=== PATIENT | male | born 1950 | race Two or more races ===

== ENCOUNTER 2018-05-13 21:23 | Emergency (ER) | payer SELFPAY ==
[~2018-05-13] VITALS: Ht 165.1 cm; Wt 72.0 kg
[2018-05-13 22:56] VITALS: BP 167/78
== END 2018-05-13 22:42 | disposition home or self-care (01) ==
LOC: ER 21:23
DX: S09.8XXA Other specified injuries of head, initial encounter (principal); I10 Essential (primary) hypertension; W52.XXXA Crushed, pushed or stepped on by crowd or human stampede, initial encounter; Y93.89 Activity, other specified; Y92.89 Other specified places as the place of occurrence of the external cause; Y99.8 Other external cause status
CPT/HCPCS: 99284

== ENCOUNTER 2019-03-16 06:30 | Inpatient (IN) | payer MEDICARE, MEDICAID ==
[~2019-03-16] VITALS: Ht 160 cm; Wt 68.0 kg
[2019-03-16] VITALS (50 sets, daily range): BP systolic 84–200; BP diastolic 52–122
[2019-03-16] MEDS ORDERED: SODIUM CHLORIDE 0.9% 1,000 ML IV ONE ×4 (06:38→10:15)
[2019-03-16] MEDS ORDERED: ETOMIDATE 2MG/ML 10ML VIAL IV ONE (06:42)
[2019-03-16] MEDS ORDERED: SUCCINYLCHOLINE CHLORIDE 200MG/10ML IV ONE (06:42)
[2019-03-16] MEDS ORDERED: PROPOFOL 10MG/ML 100ML 100 ML IV SCH (06:45)
[2019-03-16 07:02] LABS: HEMATOCRIT. 42.5 % (42.0-52.0); HEMOGLOBIN. 13.8 g/dL (14.0-18.0); MEAN CORPUSCULAR HEMOGLOBIN 29.1 pg (28.0-32.0); MEAN CORPUSCULAR VOLUME 89.7 fL (80.0-94.0); MEAN PLATELET VOLUME 10.2 fl (7.4-10.4); PLATELET 105 x1000/uL (130-400); RED BLOOD CELL COUNT 4.74 mill/uL (4.7-6.1); RED CELL DISTRIBUTION WIDTH 14.5 % (11.6-14.6)
[2019-03-16 07:13] LABS: CHLORIDE 114 mEq/L (98-107)
[2019-03-16 07:19] LABS: ETHANOL BLOOD < 10 mg/dL
[2019-03-16] MEDS ORDERED: LORAZEPAM 2MG/ML CPJ IV ONE (07:30)
[2019-03-16 07:33] LABS: CLARITY URINE TURBID (CLEAR); KETONES URINE TRACE (NEGATIVE); LEUKOCYTE ESTERASE URINE 3+ (NEGATIVE); NITRITE URINE NEGATIVE (NEGATIVE); OCCULT BLOOD URINE 3+ (NEGATIVE); PH URINE 5.5 (4.5-8.0); PROTEIN URINE 3+ (NEGATIVE); SPECIFIC GRAVITY URINE 1.015 (1.005-1.030)
[2019-03-16 07:34] LABS: COLOR URINE BLOODY (YELLOW)
[2019-03-16 07:54] LABS: PLATELET ESTIMATE SLIGHTLY DECREASED
[2019-03-16 08:02] LABS: CREATINE KINASE > 1000 IU/L (39-308)
[2019-03-16 08:03] LABS: BG BASE EXCESS -11.3 mmol/L (-2.0-2.0); BG FRACTION INSPIRED OXYGEN 100; BG HCO3 ACT 14.1 mmol/L (22.0-26.0); BG PCO2 30.6 mmHg (35.0-45.0); BG PO2 425.5 mmHg (75.0-100.0); BG SAMPLE SITE RIGHT RADIAL; BG TIDAL VOLUME(mL) 450 mL; BG VENT MODE VENT - A/C; BG VENT RATE 15 set
[2019-03-16] MEDS ORDERED: PIPERACILLIN/TAZOBACTAM 3.375GM/50ML PREMIX IV ONE (08:15)
[2019-03-16] MEDS ORDERED: VANCOMYCIN 1 G PREMIX 200 ML IV SCH (08:15)
[2019-03-16] MEDS ORDERED: PIPERACILLIN/TAZ 3.375G PREMIX 50 ML IV SCH ×2 (08:30→12:30)
[2019-03-16 10:14] LABS: INR 1.3; PROTHROMBIN TIME 13.6 sec (9.6-11.0)
[2019-03-16] MEDS ORDERED: FENTANYL CITRATE/PF 50MCG/ML 2ML VIAL IV ONE (10:15)
[2019-03-16] MEDS ORDERED: NOREPINEPHRINE 4MG/250ML PMX 250 ML IV ONE ×2 (12:04→12:15)
[2019-03-16] MEDS ORDERED: DEXT 5%/0.45% NACL 1000ML 1,000 ML IV SCH (12:22)
[2019-03-16] MEDS ORDERED: ONDANSETRON HCL 4MG/2ML INJ IV PRN (12:30)
[2019-03-16] MEDS ORDERED: DEXT 5%/0.45% NACL 1000ML 1,000 ML IV ONE (12:45)
[2019-03-16] MEDS ORDERED: LIDOCAINE HCL 1% 20ML VIAL (Pyxis) INJ ONE (13:04)
[2019-03-16] MEDS: PROPOFOL 10MG/ML 100ML 100 ML IV PRN (13:16)
[2019-03-16] MEDS ORDERED: NOREPINEPHRINE 32 MG in DEXT 5% WATER 468 ML IV PRN (13:30)
[2019-03-16 15:27] LABS: *AMPHETAMINES SCREEN URINE NEGATIVE (NEGATIVE); *BARBITURATES SCREEN URINE NEGATIVE (NEGATIVE); *COCAINE SCREEN URINE NEGATIVE (NEGATIVE)
[2019-03-16 15:28] LABS: *BENZODIAZEPINES SCREEN URINE NEGATIVE (NEGATIVE); CANNABINOID URINE SCREEN NEGATIVE (NEGATIVE); METHADONE URINE SCREEN NEGATIVE (NEGATIVE); OPIATES URINE SCREEN NEGATIVE (NEGATIVE); PHENCYCLIDINE URINE SCREEN NEGATIVE (NEGATIVE)
[2019-03-16 16:08] LABS: HEPATITIS B SURFACE AB < 3.1 mIU/mL
[2019-03-16 16:18] LABS: HEPATITIS B SURFACE ANTIGEN NEGATIVE
[2019-03-16 19:07] LABS: BG BASE EXCESS -3.1 mmol/L (-2.0-2.0); BG CARBOXYHEMOGLOBIN 0.3 % (0.5-1.5); BG DEOXYHEMOGLOBIN 2.6 % (0.0-5.0); BG FRACTION INSPIRED OXYGEN 50; BG HCO3 ACT 19.7 mmol/L (22.0-26.0); BG METHEMOGLOBIN 0.3 % (0.0-1.5); BG OXYGEN SATURATION 97.4 % (92.0-98.5); BG OXYHEMOGLOBIN 96.8 % (94.0-97.0); BG PCO2 28.5 mmHg (35.0-45.0); BG PH 7.457 (7.350-7.450); BG PO2 121.4 mmHg (75.0-100.0); BG SAMPLE SITE RIGHT RADIAL; BG TIDAL VOLUME(mL) 500 mL; BG TOTAL HEMOGLOBIN 12.2 g/dL (12.0-18.0); BG VENT MODE VENT - A/C; BG VENT RATE 16 set
[2019-03-16] MEDS ORDERED: HEPARIN 25,000 UNITS PREMIX 500 ML IV PRN (20:00)
[2019-03-16] MEDS ORDERED: HEPARIN 5000 UNITS/ML VIAL IV SCH (20:00)
[2019-03-16] MEDS ORDERED: HEPARIN 5000 UNITS/ML VIAL IV PRN ×3 (20:00→20:30)
[2019-03-16 20:16] LABS: INR 1.2; PARTIAL THROMBOPLASTIN TIME 36.4 sec (23.4-31.0); PROTHROMBIN TIME 12.7 sec (9.6-11.0)
[2019-03-16] MEDS ORDERED: HEPARIN 5000 UNITS/ML VIAL IV NR (21:00)
[2019-03-16] MEDS ORDERED: HEPARIN 5000 UNITS/ML VIAL SUBCUT SCH (21:00)
[2019-03-16] MEDS: PIPERACILLIN/TAZOBACTAM 3.375 G in DEXT 5% WATER 100 ML IV SCH (21:05)
[2019-03-16] MEDS: HEPARIN 25,000 UNITS PREMIX 500 ML IV PRN (21:40)
[2019-03-16 23:19] LABS: CREATINE KINASE MB FRACTION 10.7 ng/mL (0.5-3.6)
[2019-03-17] VITALS (77 sets, daily range): BP systolic 86–148; BP diastolic 47–90
[2019-03-17 05:23] LABS: HEMATOCRIT. 35.9 % (42.0-52.0); HEMOGLOBIN. 12.4 g/dL (14.0-18.0); MEAN CORPUSCULAR HEMOGLOBIN 29.9 pg (28.0-32.0); MEAN CORPUSCULAR VOLUME 86.5 fL (80.0-94.0); MEAN PLATELET VOLUME 10.3 fl (7.4-10.4); PLATELET 69 x1000/uL (130-400); RED BLOOD CELL COUNT 4.15 mill/uL (4.7-6.1); RED CELL DISTRIBUTION WIDTH 14.7 % (11.6-14.6)
[2019-03-17 05:40] LABS: CHLORIDE 117 mEq/L (98-107)
[2019-03-17] MEDS: PROPOFOL 10MG/ML 100ML 100 ML IV PRN ×2 (05:52→17:52)
[2019-03-17 05:53] LABS: PHOSPHORUS 2.6 mg/dL (2.5-4.9)
[2019-03-17] MEDS: HEPARIN 5000 UNITS/ML VIAL IV PRN ×2 (06:04→18:56)
[2019-03-17 07:41] LABS: BG BASE EXCESS 0.6 mmol/L (-2.0-2.0); BG CARBOXYHEMOGLOBIN 0.3 % (0.5-1.5); BG DEOXYHEMOGLOBIN 2.8 % (0.0-5.0); BG FRACTION INSPIRED OXYGEN 50; BG HCO3 ACT 23.9 mmol/L (22.0-26.0); BG METHEMOGLOBIN 0.2 % (0.0-1.5); BG OXYGEN SATURATION 97.2 % (92.0-98.5); BG OXYHEMOGLOBIN 96.7 % (94.0-97.0); BG PH 7.465 (7.350-7.450); BG PO2 119.6 mmHg (75.0-100.0); BG SAMPLE SITE RIGHT BRACHIAL; BG TIDAL VOLUME(mL) 500 mL; BG TOTAL HEMOGLOBIN 12.6 g/dL (12.0-18.0); BG VENT MODE VENT - A/C; BG VENT RATE 16 set
[2019-03-17 09:17] LABS: PLATELET ESTIMATE DECREASED
[2019-03-17] MEDS: PIPERACILLIN/TAZOBACTAM 3.375 G in DEXT 5% WATER 100 ML IV SCH (09:23)
[2019-03-17] MEDS: DEXT 5%/0.2% NACL 1,000 ML IV SCH ×3 (09:23→20:40)
[2019-03-17] MEDS ORDERED: POTASSIUM CHLORIDE INJ 40 MEQ in DEXT 5% WATER 250 ML IV NR (09:30)
[2019-03-17] MEDS ORDERED: ACETAMINOPHEN 325MG TABLET PO PRN (10:45)
[2019-03-17] MEDS: ACETAMINOPHEN 325MG TABLET PO PRN (10:59)
[2019-03-17] MEDS ORDERED: VANCOMYCIN 1250MG in DEXTROSE 5% WATER 250ML IV NR (13:00)
[2019-03-17] MEDS: HEPARIN 25,000 UNITS PREMIX 500 ML IV PRN (18:12)
[2019-03-17] MEDS: MEROPENEM 1,000 MG in SODIUM CHLORIDE 0.9% 100 ML IV SCH (20:37)
[2019-03-17] MEDS ORDERED: SODIUM CHLORIDE 0.9% IV SCH (21:00)
[2019-03-17] MEDS ORDERED: AMIKACIN SULFATE IV SCH (21:00)
[2019-03-18] VITALS (48 sets, daily range): BP systolic 89–131; BP diastolic 54–81
[2019-03-18] MEDS: IPRATROPIUM/ALBUTEROL 0.5-3(2.5)MG/3ML NEB NEB PRN ×3 (00:16→20:15)
[2019-03-18] MEDS: HEPARIN 5000 UNITS/ML VIAL IV PRN (01:31)
[2019-03-18] MEDS: ACETAMINOPHEN 325MG TABLET PO PRN ×2 (04:11→19:50)
[2019-03-18 05:27] LABS: CHLORIDE 118 mEq/L (98-107)
[2019-03-18 05:32] LABS: HEMATOCRIT. 34.4 % (42.0-52.0); HEMOGLOBIN. 11.6 g/dL (14.0-18.0); MEAN CORPUSCULAR HEMOGLOBIN 29.2 pg (28.0-32.0); MEAN CORPUSCULAR VOLUME 86.5 fL (80.0-94.0); MEAN PLATELET VOLUME 10.3 fl (7.4-10.4); PLATELET 58 x1000/uL (130-400); RED BLOOD CELL COUNT 3.98 mill/uL (4.7-6.1); RED CELL DISTRIBUTION WIDTH 14.6 % (11.6-14.6)
[2019-03-18 05:37] LABS: PHOSPHORUS 1.8 mg/dL (2.5-4.9)
[2019-03-18 05:39] LABS: CREATINE KINASE 265 IU/L (39-308)
[2019-03-18] MEDS: DEXT 5%/0.2% NACL 1,000 ML IV SCH (05:53)
[2019-03-18] MEDS: PROPOFOL 10MG/ML 100ML 100 ML IV PRN (05:55)
[2019-03-18 07:02] LABS: PLATELET ESTIMATE DECREASED
[2019-03-18] MEDS ORDERED: KCL 20MEQ/100ML PREMIX 100 ML IV ONE ×2 (08:00→10:00)
[2019-03-18] MEDS: MEROPENEM 1,000 MG in SODIUM CHLORIDE 0.9% 100 ML IV SCH (08:47)
[2019-03-18] MEDS: DEXTROSE 5% WATER 1,000 ML IV SCH ×2 (09:03→19:27)
[2019-03-18] MEDS: POTASSIUM CHLORIDE 20MEQ/PACKET NG SCH (09:39)
[2019-03-18] MEDS ORDERED: POTASSIUM PHOS,M-BASIC-D-BASIC 15 MMOL in DEXT 5% WATER 245 ML IV SCH (10:00)
[2019-03-18] MEDS: VANCOMYCIN 750 MG PREMIX 150 ML IV SCH ×2 (11:13→17:57)
[2019-03-18] MEDS: HEPARIN 25,000 UNITS PREMIX 500 ML IV PRN (11:16)
[2019-03-18] MEDS ORDERED: IOHEXOL-350 100 ML BOTTLE ONE (15:42)
[2019-03-18] MEDS: CEFAZOLIN 1000MG PREMIX 50 ML IV SCH (19:50)
[2019-03-19] VITALS (36 sets, daily range): BP systolic 110–153; BP diastolic 58–86
[2019-03-19] MEDS: IPRATROPIUM/ALBUTEROL 0.5-3(2.5)MG/3ML NEB NEB PRN ×4 (00:07→17:29)
[2019-03-19] MEDS: VANCOMYCIN 750 MG PREMIX 150 ML IV SCH ×2 (00:40→08:06)
[2019-03-19] MEDS: CEFAZOLIN 1000MG PREMIX 50 ML IV SCH ×3 (02:38→17:53)
[2019-03-19] MEDS: HEPARIN 25,000 UNITS PREMIX 500 ML IV PRN ×2 (02:41→17:57)
[2019-03-19 05:33] LABS: HEMATOCRIT. 36.6 % (42.0-52.0); HEMOGLOBIN. 12.1 g/dL (14.0-18.0); MEAN CORPUSCULAR HEMOGLOBIN 28.8 pg (28.0-32.0); MEAN CORPUSCULAR VOLUME 86.9 fL (80.0-94.0); MEAN PLATELET VOLUME 10.8 fl (7.4-10.4); PLATELET 56 x1000/uL (130-400); RED BLOOD CELL COUNT 4.21 mill/uL (4.7-6.1); RED CELL DISTRIBUTION WIDTH 14.5 % (11.6-14.6)
[2019-03-19 05:38] LABS: CHLORIDE 114 mEq/L (98-107)
[2019-03-19 05:46] LABS: PHOSPHORUS 2.3 mg/dL (2.5-4.9)
[2019-03-19 05:47] LABS: LDL CHOLESTEROL 41 mg/dL (5-100)
[2019-03-19 05:49] LABS: HDL CHOLESTEROL 13 mg/dL (40-59)
[2019-03-19] MEDS: POTASSIUM CHLORIDE 20MEQ/PACKET NG SCH ×2 (08:06→21:07)
[2019-03-19] MEDS: DEXTROSE 5% WATER 1,000 ML IV SCH ×4 (08:15→17:39)
[2019-03-19 10:20] LABS: BG BASE EXCESS -0.7 mmol/L (-2.0-2.0); BG CARBOXYHEMOGLOBIN 0.2 % (0.5-1.5); BG DEOXYHEMOGLOBIN 2.3 % (0.0-5.0); BG FRACTION INSPIRED OXYGEN 35; BG METHEMOGLOBIN 0.3 % (0.0-1.5); BG OXYGEN SATURATION 97.7 % (92.0-98.5); BG OXYHEMOGLOBIN 97.2 % (94.0-97.0); BG PCO2 30.3 mmHg (35.0-45.0); BG PH 7.479 (7.350-7.450); BG PO2 136.9 mmHg (75.0-100.0); BG PRESSURE SUPPORT 8; BG SAMPLE SITE RIGHT RADIAL; BG TOTAL HEMOGLOBIN 12.1 g/dL (12.0-18.0); BG VENT MODE VENT - CPAP
[2019-03-19] MEDS ORDERED: RACEPINEPHRINE 2.25% 0.5ML NEB VIAL HHN PRN (10:45)
[2019-03-19] MEDS ORDERED: POTASSIUM PHOS,M-BASIC-D-BASIC 20 MMOL in DEXT 5% WATER 243.3333 ML IV NR (12:00)
[2019-03-19 14:13] LABS: PLATELET ESTIMATE DECREASED
[2019-03-20] VITALS (43 sets, daily range): BP systolic 114–151; BP diastolic 39–95
[2019-03-20] MEDS: CEFAZOLIN 1000MG PREMIX 50 ML IV SCH ×3 (03:53→18:16)
[2019-03-20 05:13] LABS: HEMATOCRIT. 35.9 % (42.0-52.0); MEAN CORPUSCULAR HEMOGLOBIN 28.6 pg (28.0-32.0); MEAN CORPUSCULAR VOLUME 85.6 fL (80.0-94.0); PLATELET 99 x1000/uL (130-400); RED BLOOD CELL COUNT 4.19 mill/uL (4.7-6.1); RED CELL DISTRIBUTION WIDTH 14.3 % (11.6-14.6)
[2019-03-20 05:18] LABS: CHLORIDE 113 mEq/L (98-107)
[2019-03-20 05:23] LABS: PHOSPHORUS 3.1 mg/dL (2.5-4.9)
[2019-03-20] MEDS: DEXTROSE 5% WATER 1,000 ML IV SCH ×2 (05:25→18:16)
[2019-03-20 07:43] LABS: PLATELET ESTIMATE DECREASED
[2019-03-20] MEDS: POTASSIUM CHLORIDE 20MEQ/PACKET NG SCH ×2 (08:36→21:03)
[2019-03-20] MEDS: IPRATROPIUM/ALBUTEROL 0.5-3(2.5)MG/3ML NEB NEB PRN (09:17)
[2019-03-20 20:44] LABS: HEMATOCRIT. 31.5 % (42.0-52.0); HEMOGLOBIN. 10.6 g/dL (14.0-18.0); MEAN CORPUSCULAR HEMOGLOBIN 28.7 pg (28.0-32.0); MEAN CORPUSCULAR VOLUME 85.6 fL (80.0-94.0); PLATELET 142 x1000/uL (130-400); RED BLOOD CELL COUNT 3.68 mill/uL (4.7-6.1); RED CELL DISTRIBUTION WIDTH 14.5 % (11.6-14.6)
[2019-03-21] VITALS (31 sets, daily range): BP systolic 120–149; BP diastolic 54–85
[2019-03-21] MEDS: CEFAZOLIN 1000MG PREMIX 50 ML IV SCH ×3 (03:16→18:01)
[2019-03-21 03:39] LABS: PLATELET ESTIMATE NORMAL
[2019-03-21] MEDS: DEXTROSE 5% WATER 1,000 ML IV SCH (08:11)
[2019-03-21 09:12] LABS: HEMATOCRIT. 29.5 % (42.0-52.0); HEMOGLOBIN. 9.9 g/dL (14.0-18.0); MEAN CORPUSCULAR HEMOGLOBIN 28.6 pg (28.0-32.0); MEAN CORPUSCULAR VOLUME 85.7 fL (80.0-94.0); MEAN PLATELET VOLUME 10.9 fl (7.4-10.4); PLATELET 174 x1000/uL (130-400); RED BLOOD CELL COUNT 3.45 mill/uL (4.7-6.1); RED CELL DISTRIBUTION WIDTH 14.3 % (11.6-14.6)
[2019-03-21 09:16] LABS: CHLORIDE 114 mEq/L (98-107)
[2019-03-21 09:22] LABS: PHOSPHORUS 2.9 mg/dL (2.5-4.9)
[2019-03-21] MEDS: POTASSIUM CHLORIDE 20MEQ/PACKET NG SCH ×2 (09:23→21:11)
[2019-03-21 09:57] LABS: PLATELET ESTIMATE NORMAL
[2019-03-21] MEDS: APIXABAN 5 MG TABLET PO SCH ×2 (12:16→17:15)
[2019-03-22] VITALS (32 sets, daily range): BP systolic 107–137; BP diastolic 46–75
[2019-03-22] MEDS: DEXTROSE 5% WATER 1,000 ML IV SCH ×2 (00:38→10:28)
[2019-03-22] MEDS: CEFAZOLIN 1000MG PREMIX 50 ML IV SCH ×3 (04:56→18:03)
[2019-03-22 05:31] LABS: BASOPHILS % 0.5 % (0.0-2.0); EOSINOPHILS % 2.6 % (0.0-5.0); HEMATOCRIT. 31.5 % (42.0-52.0); HEMOGLOBIN. 10.5 g/dL (14.0-18.0); LYMPHOCYTES % 7.1 % (20.0-50.0); MEAN CORPUSCULAR HEMOGLOBIN 29.5 pg (28.0-32.0); MEAN CORPUSCULAR VOLUME 88.5 fL (80.0-94.0); MEAN PLATELET VOLUME 10.9 fl (7.4-10.4); MONOCYTES % 4.3 % (2.0-8.0); NEUTROPHILS % 85.5 % (40.0-76.0); PLATELET 190 x1000/uL (130-400); RED BLOOD CELL COUNT 3.55 mill/uL (4.7-6.1); RED CELL DISTRIBUTION WIDTH 14.5 % (11.6-14.6)
[2019-03-22 05:45] LABS: CHLORIDE 114 mEq/L (98-107)
[2019-03-22 06:01] LABS: PHOSPHORUS 3.6 mg/dL (2.5-4.9)
[2019-03-22] MEDS: POTASSIUM CHLORIDE 20MEQ/PACKET NG SCH ×2 (08:01→08:06)
[2019-03-22] MEDS: APIXABAN 5 MG TABLET PO SCH ×2 (08:01→16:19)
[2019-03-22] MEDS: METRONIDAZOLE 500 MG PREMIX 100 ML IV SCH ×2 (15:22→22:02)
[2019-03-23] VITALS (42 sets, daily range): BP systolic 99–139; BP diastolic 50–98
[2019-03-23] MEDS: CEFAZOLIN 1000MG PREMIX 50 ML IV SCH ×3 (03:04→18:15)
[2019-03-23 05:23] LABS: HEMATOCRIT. 29.3 % (42.0-52.0); HEMOGLOBIN. 9.9 g/dL (14.0-18.0); MEAN CORPUSCULAR VOLUME 85.6 fL (80.0-94.0); MEAN PLATELET VOLUME 9.6 fl (7.4-10.4); PLATELET 414 x1000/uL (130-400); RED BLOOD CELL COUNT 3.43 mill/uL (4.7-6.1); RED CELL DISTRIBUTION WIDTH 14.3 % (11.6-14.6)
[2019-03-23 05:28] LABS: CHLORIDE 110 mEq/L (98-107)
[2019-03-23 05:32] LABS: PHOSPHORUS 3.6 mg/dL (2.5-4.9)
[2019-03-23] MEDS: METRONIDAZOLE 500 MG PREMIX 100 ML IV SCH ×3 (06:02→22:00)
[2019-03-23 08:02] LABS: PLATELET ESTIMATE SLIGHTLY INCREASED
[2019-03-23] MEDS: APIXABAN 5 MG TABLET PO SCH ×2 (08:09→17:19)
[2019-03-24] VITALS (14 sets, daily range): BP systolic 112–135; BP diastolic 51–73
[2019-03-24] MEDS: CEFAZOLIN 1000MG PREMIX 50 ML IV SCH ×2 (02:18→11:00)
[2019-03-24] MEDS: METRONIDAZOLE 500 MG PREMIX 100 ML IV SCH ×3 (05:02→23:10)
[2019-03-24 05:23] LABS: HEMATOCRIT. 32.3 % (42.0-52.0); HEMOGLOBIN. 10.5 g/dL (14.0-18.0); MEAN CORPUSCULAR HEMOGLOBIN 28.4 pg (28.0-32.0); MEAN CORPUSCULAR VOLUME 87.3 fL (80.0-94.0); MEAN PLATELET VOLUME 9.5 fl (7.4-10.4); PLATELET 531 x1000/uL (130-400); RED BLOOD CELL COUNT 3.71 mill/uL (4.7-6.1); RED CELL DISTRIBUTION WIDTH 14.5 % (11.6-14.6)
[2019-03-24 05:31] LABS: CHLORIDE 112 mEq/L (98-107)
[2019-03-24 05:42] LABS: PHOSPHORUS 2.9 mg/dL (2.5-4.9)
[2019-03-24 07:47] LABS: PLATELET ESTIMATE INCREASED
[2019-03-24] MEDS: APIXABAN 5 MG TABLET PO SCH ×2 (12:34→17:59)
[2019-03-24] MEDS: TAMSULOSIN HCL 0.4MG SR CAPSULE PO SCH (12:42)
[2019-03-24] MEDS ORDERED: REGADENOSON 0.4 MG/5 ML IV NR (13:30)
[2019-03-25] MEDS: CEFAZOLIN 1000MG PREMIX 50 ML IV SCH ×3 (03:00→18:28)
[2019-03-25] MEDS: METRONIDAZOLE 500 MG PREMIX 100 ML IV SCH ×2 (07:09→16:44)
[2019-03-25 08:00] VITALS: BP 135/79
[2019-03-25] MEDS: APIXABAN 5 MG TABLET PO SCH ×2 (10:14→16:44)
[2019-03-25] MEDS: TAMSULOSIN HCL 0.4MG SR CAPSULE PO SCH (10:15)
[2019-03-25 10:36] LABS: HEMOGLOBIN. 11.3 g/dL (14.0-18.0); MEAN CORPUSCULAR HEMOGLOBIN 28.9 pg (28.0-32.0); MEAN CORPUSCULAR VOLUME 87.1 fL (80.0-94.0); MEAN PLATELET VOLUME 9.1 fl (7.4-10.4); PLATELET 585 x1000/uL (130-400); RED CELL DISTRIBUTION WIDTH 14.5 % (11.6-14.6)
[2019-03-25 10:50] LABS: CHLORIDE 116 mEq/L (98-107)
[2019-03-25 10:57] LABS: PHOSPHORUS 2.9 mg/dL (2.5-4.9)
[2019-03-25 11:29] LABS: PLATELET ESTIMATE INCREASED
[2019-03-25] MEDS ORDERED: REGADENOSON 0.4 MG/5 ML IV ONE (11:39)
[2019-03-25 14:15] LABS: T4 FREE 1.23 ng/dL (0.76-1.46)
[2019-03-25 14:36] LABS: VITAMIN B12 SERUM 1430 pg/mL (211-911)
[2019-03-25 14:42] LABS: FOLIC ACID (FOLATE) SERUM > 20.00 ng/mL (>5.38)
[2019-03-25 16:00] VITALS: BP 130/89
[2019-03-25 20:00] VITALS: BP 146/80
[2019-03-26] VITALS (7 sets, daily range): BP systolic 119–152; BP diastolic 69–82
[2019-03-26] MEDS: METRONIDAZOLE 500 MG PREMIX 100 ML IV SCH ×2 (00:03→06:18)
[2019-03-26 07:26] LABS: HEMATOCRIT. 32.6 % (42.0-52.0); HEMOGLOBIN. 10.8 g/dL (14.0-18.0); MEAN CORPUSCULAR HEMOGLOBIN 29.1 pg (28.0-32.0); MEAN CORPUSCULAR VOLUME 87.4 fL (80.0-94.0); MEAN PLATELET VOLUME 8.8 fl (7.4-10.4); PLATELET 575 x1000/uL (130-400); RED BLOOD CELL COUNT 3.73 mill/uL (4.7-6.1); RED CELL DISTRIBUTION WIDTH 14.9 % (11.6-14.6)
[2019-03-26 08:18] LABS: PHOSPHORUS 4.1 mg/dL (2.5-4.9)
[2019-03-26] MEDS ORDERED: DEXT 5%/0.45% NACL 1000ML 1,000 ML IV SCH (09:00)
[2019-03-26] MEDS: TAMSULOSIN HCL 0.4MG SR CAPSULE PO SCH (12:25)
[2019-03-26] MEDS: APIXABAN 5 MG TABLET PO SCH (12:25)
[2019-03-26 13:38] LABS: PLATELET ESTIMATE INCREASED
[2019-03-26] MEDS ORDERED: LACTULOSE 20G/30ML UDC PO SCH (22:00)
== END 2019-03-26 22:20 | DRG 871 ==
LOC: ER 06:30 → CVICU 11:31 → EDBEDREQTM 11:36 → EDBEDREQ 11:36 → ENRESERV 11:46 → CANRESERV 11:46 → ENRESERV 11:49 → 8WST 03-24 06:18
PROVIDERS: ADMIT Internal Medicine; ATTEND Internal Medicine
PROC: 5A1945Z Respiratory Ventilation, 24-96 Consecutive Hours (ICD-10-PCS; principal; 2019-03-16)
PROC: 0BH17EZ Insertion of Endotracheal Airway into Trachea, Via Natural or Artificial Opening (ICD-10-PCS; 2019-03-16)
PROC: 02H633Z Insertion of Infusion Device into Right Atrium, Percutaneous Approach (ICD-10-PCS; 2019-03-16)
PROC: B548ZZA Ultrasonography of Superior Vena Cava, Guidance (ICD-10-PCS; 2019-03-16)
PROC: 5A1D70Z Performance of Urinary Filtration, Intermittent, Less than 6 Hours Per Day (ICD-10-PCS; 2019-03-16)
DX: A41.51 Sepsis due to Escherichia coli [E. coli] (principal); R65.21 Severe sepsis with septic shock; E43 Unspecified severe protein-calorie malnutrition; J96.00 Acute respiratory failure, unspecified whether with hypoxia or hypercapnia; D65 Disseminated intravascular coagulation [defibrination syndrome]; G82.50 Quadriplegia, unspecified; G92 Toxic encephalopathy; I21.4 Non-ST elevation (NSTEMI) myocardial infarction; I26.99 Other pulmonary embolism without acute cor pulmonale; J18.9 Pneumonia, unspecified organism; N17.9 Acute kidney failure, unspecified; M62.82 Rhabdomyolysis; N39.0 Urinary tract infection, site not specified; E87.2 Acidosis; E87.0 Hyperosmolality and hypernatremia; G62.81 Critical illness polyneuropathy; J98.11 Atelectasis; R47.01 Aphasia; D64.9 Anemia, unspecified; B96.20 Unspecified Escherichia coli [E. coli] as the cause of diseases classified elsewhere; E86.9 Volume depletion, unspecified; K57.90 Diverticulosis of intestine, part unspecified, without perforation or abscess without bleeding; R13.10 Dysphagia, unspecified; R31.0 Gross hematuria; I10 Essential (primary) hypertension; Z68.26 Body mass index [BMI] 26.0-26.9, adult; I25.2 Old myocardial infarction; Z82.49 Family history of ischemic heart disease and other diseases of the circulatory system
CPT/HCPCS: 36415; 36600; 70551; 71045; 71250; 71275; 74018; 74176; 76700; 77001; 78452; 78580; 80048; 80061; 80076; 80202; 80305; 80307; 80320; 80329; 81003; 82140; 82375; 82550; 82553; 82607; 82746; 82805; 82962; 83036; 83605; 83735; 83880; 84100; 84145; 84439; 84443; 84478; 84481; 84484; 85379; 86705; 86706; 86803; 87070; 87077; 87186; 87340; 92523; 92610; 93005; 93017; 93306; 93880; 93970; 94002; 94003; 94640; 97110; 97162; 97166; 99291; A6261; A9500; C1752; J0278; J0330; J0690; J1644; J2060; J2185; J2543; J2704; J2785; J3010; J3370; J3480; J3490; J7030; J7040; J7050; J7060; J7070; J7620; Q9967; A4315; G0480

== ENCOUNTER 2019-03-26 22:30 | Inpatient (IN) | payer MEDICARE, MEDICAID ==
[~2019-03-26] VITALS: Ht 160 cm; Wt 68.0 kg
[2019-03-26 22:35] VITALS: BP 122/63
[2019-03-26 23:00] VITALS: BP 122/63
[2019-03-26] MEDS ORDERED: ONDANSETRON HCL 4MG TABLET PO PRN (23:45)
[2019-03-26] MEDS ORDERED: RACEPINEPHRINE 2.25% 0.5ML NEB VIAL HHN PRN (23:45)
[2019-03-26] MEDS ORDERED: ACETAMINOPHEN 325MG TABLET PO PRN (23:45)
[2019-03-26] MEDS ORDERED: IPRATROPIUM/ALBUTEROL 0.5-3(2.5)MG/3ML NEB HHN PRN (23:45)
[2019-03-27] MEDS: LACTULOSE 20G/30ML UDC PO SCH ×3 (06:00→21:16)
[2019-03-27 08:00] VITALS: BP 129/75
[2019-03-27] MEDS: APIXABAN 5 MG TABLET PO SCH ×2 (08:20→17:59)
[2019-03-27] MEDS ORDERED: TAMSULOSIN HCL 0.4MG SR CAPSULE PO SCH (09:00)
[2019-03-27 10:54] LABS: BASOPHILS % 0.8 % (0.0-2.0); EOSINOPHILS % 1.7 % (0.0-5.0); HEMATOCRIT. 32.7 % (42.0-52.0); HEMOGLOBIN. 10.8 g/dL (14.0-18.0); LYMPHOCYTES % 10.1 % (20.0-50.0); MEAN CORPUSCULAR HEMOGLOBIN 28.9 pg (28.0-32.0); MEAN CORPUSCULAR VOLUME 87.5 fL (80.0-94.0); MEAN PLATELET VOLUME 8.8 fl (7.4-10.4); MONOCYTES % 7.1 % (2.0-8.0); NEUTROPHILS % 80.3 % (40.0-76.0); PLATELET 550 x1000/uL (130-400); RED BLOOD CELL COUNT 3.73 mill/uL (4.7-6.1)
[2019-03-27 11:24] LABS: CHLORIDE 115 mEq/L (98-107)
[2019-03-27 11:30] LABS: PHOSPHORUS 2.7 mg/dL (2.5-4.9)
[2019-03-27] MEDS ORDERED: POTASSIUM CHLORIDE 20MEQ TABLET SR PO SCH (13:15)
[2019-03-27] MEDS: TAMSULOSIN HCL 0.4MG SR CAPSULE PO SCH (17:58)
[2019-03-27] MEDS: FINASTERIDE 5MG TABLET PO SCH (17:59)
[2019-03-27 20:00] VITALS: BP 121/67
[2019-03-28] MEDS: LACTULOSE 20G/30ML UDC PO SCH ×3 (06:00→21:14)
[2019-03-28 07:09] LABS: BASOPHILS % 1.3 % (0.0-2.0); EOSINOPHILS % 2.3 % (0.0-5.0); HEMATOCRIT. 28.6 % (42.0-52.0); HEMOGLOBIN. 9.6 g/dL (14.0-18.0); LYMPHOCYTES % 13.7 % (20.0-50.0); MEAN CORPUSCULAR HEMOGLOBIN 29.3 pg (28.0-32.0); MEAN CORPUSCULAR VOLUME 87.1 fL (80.0-94.0); MEAN PLATELET VOLUME 8.4 fl (7.4-10.4); MONOCYTES % 6.9 % (2.0-8.0); NEUTROPHILS % 75.8 % (40.0-76.0); PLATELET 484 x1000/uL (130-400); RED BLOOD CELL COUNT 3.28 mill/uL (4.7-6.1); RED CELL DISTRIBUTION WIDTH 14.6 % (11.6-14.6)
[2019-03-28 07:31] LABS: CHLORIDE 117 mEq/L (98-107)
[2019-03-28 07:44] LABS: PHOSPHORUS 2.8 mg/dL (2.5-4.9)
[2019-03-28 08:00] VITALS: BP 130/71
[2019-03-28] MEDS: TAMSULOSIN HCL 0.4MG SR CAPSULE PO SCH ×2 (08:15→16:02)
[2019-03-28] MEDS: FINASTERIDE 5MG TABLET PO SCH (08:16)
[2019-03-28] MEDS: APIXABAN 5 MG TABLET PO SCH ×2 (08:16→16:02)
[2019-03-28] MEDS ORDERED: POTASSIUM CHLORIDE 20MEQ TABLET SR PO NR (11:30)
[2019-03-28] MEDS ORDERED: MAGNESIUM 2 G PREMIX 50 ML IV NR (12:30)
[2019-03-28 20:00] VITALS: BP 134/66
[2019-03-29] MEDS: LACTULOSE 20G/30ML UDC PO SCH ×3 (06:00→20:35)
[2019-03-29] MEDS: LEVOTHYROXINE SODIUM 25MCG TABLET PO SCH (06:30)
[2019-03-29 08:00] VITALS: BP 137/64
[2019-03-29] MEDS: APIXABAN 5 MG TABLET PO SCH ×2 (08:18→17:15)
[2019-03-29] MEDS: FINASTERIDE 5MG TABLET PO SCH (08:18)
[2019-03-29 08:19] LABS: BASOPHILS % 1.5 % (0.0-2.0); EOSINOPHILS % 3.2 % (0.0-5.0); HEMATOCRIT. 28.8 % (42.0-52.0); HEMOGLOBIN. 9.5 g/dL (14.0-18.0); LYMPHOCYTES % 13.3 % (20.0-50.0); MEAN CORPUSCULAR VOLUME 87.6 fL (80.0-94.0); MEAN PLATELET VOLUME 8.8 fl (7.4-10.4); MONOCYTES % 6.3 % (2.0-8.0); NEUTROPHILS % 75.7 % (40.0-76.0); PLATELET 452 x1000/uL (130-400); RED BLOOD CELL COUNT 3.29 mill/uL (4.7-6.1); RED CELL DISTRIBUTION WIDTH 14.8 % (11.6-14.6)
[2019-03-29] MEDS: TAMSULOSIN HCL 0.4MG SR CAPSULE PO SCH ×2 (08:22→17:15)
[2019-03-29 08:33] LABS: CHLORIDE 116 mEq/L (98-107)
[2019-03-29 08:44] LABS: PHOSPHORUS 2.8 mg/dL (2.5-4.9)
[2019-03-29 08:47] LABS: T4 FREE 1.13 ng/dL (0.76-1.46)
[2019-03-29 20:00] VITALS: BP 141/72
[2019-03-30] MEDS: LACTULOSE 20G/30ML UDC PO SCH ×3 (05:10→21:15)
[2019-03-30] MEDS: LEVOTHYROXINE SODIUM 25MCG TABLET PO SCH (06:19)
[2019-03-30 08:20] VITALS: BP 121/73
[2019-03-30] MEDS: APIXABAN 5 MG TABLET PO SCH ×2 (08:35→16:11)
[2019-03-30] MEDS: TAMSULOSIN HCL 0.4MG SR CAPSULE PO SCH ×2 (08:35→16:07)
[2019-03-30] MEDS: FINASTERIDE 5MG TABLET PO SCH (08:35)
[2019-03-30 20:00] VITALS: BP 140/76
[2019-03-31] MEDS: SILVER SULFADIAZINE 1% CREAM 50GM TOP SCH (02:10)
[2019-03-31] MEDS: LACTULOSE 20G/30ML UDC PO SCH ×3 (06:00→21:32)
[2019-03-31] MEDS: LEVOTHYROXINE SODIUM 25MCG TABLET PO SCH (06:26)
[2019-03-31] MEDS: FINASTERIDE 5MG TABLET PO SCH (08:23)
[2019-03-31] MEDS: TAMSULOSIN HCL 0.4MG SR CAPSULE PO SCH ×2 (08:24→16:10)
[2019-03-31 08:33] VITALS: BP 156/81
[2019-03-31] MEDS: APIXABAN 5 MG TABLET PO SCH ×2 (09:31→16:10)
[2019-03-31 18:30] LABS: CLARITY URINE CLOUDY (CLEAR); COLOR URINE YELLOW (YELLOW); KETONES URINE NEGATIVE (NEGATIVE); LEUKOCYTE ESTERASE URINE 3+ (NEGATIVE); NITRITE URINE NEGATIVE (NEGATIVE); OCCULT BLOOD URINE 1+ (NEGATIVE); PH URINE 8.5 (4.5-8.0); PROTEIN URINE NEGATIVE (NEGATIVE); SPECIFIC GRAVITY URINE 1.004 (1.005-1.030); UROBILINOGEN URINE 0.2 E.U./dL (0.2-1.0)
[2019-03-31 20:00] VITALS: BP 147/85
[2019-04-01] MEDS: LACTULOSE 20G/30ML UDC PO SCH ×3 (06:15→22:18)
[2019-04-01] MEDS: LEVOTHYROXINE SODIUM 25MCG TABLET PO SCH (06:15)
[2019-04-01 07:24] LABS: CHLORIDE 114 mEq/L (98-107)
[2019-04-01 07:30] LABS: BASOPHILS % 1.3 % (0.0-2.0); EOSINOPHILS % 2.9 % (0.0-5.0); HEMATOCRIT. 31.3 % (42.0-52.0); HEMOGLOBIN. 10.7 g/dL (14.0-18.0); LYMPHOCYTES % 11.5 % (20.0-50.0); MEAN CORPUSCULAR HEMOGLOBIN 29.7 pg (28.0-32.0); MEAN CORPUSCULAR VOLUME 87.3 fL (80.0-94.0); MEAN PLATELET VOLUME 8.6 fl (7.4-10.4); MONOCYTES % 6.2 % (2.0-8.0); NEUTROPHILS % 78.1 % (40.0-76.0); PLATELET 343 x1000/uL (130-400); RED BLOOD CELL COUNT 3.59 mill/uL (4.7-6.1); RED CELL DISTRIBUTION WIDTH 15.5 % (11.6-14.6)
[2019-04-01 07:41] LABS: PHOSPHORUS 3.2 mg/dL (2.5-4.9)
[2019-04-01 07:52] VITALS: BP 163/84
[2019-04-01] MEDS: TAMSULOSIN HCL 0.4MG SR CAPSULE PO SCH ×2 (09:00→16:52)
[2019-04-01] MEDS: APIXABAN 5 MG TABLET PO SCH ×2 (09:01→16:51)
[2019-04-01] MEDS: FINASTERIDE 5MG TABLET PO SCH (09:01)
[2019-04-01] MEDS: SILVER SULFADIAZINE 1% CREAM 50GM TOP SCH (09:01)
[2019-04-01 20:00] VITALS: BP 164/83
[2019-04-02] MEDS: LACTULOSE 20G/30ML UDC PO SCH ×3 (06:00→21:49)
[2019-04-02] MEDS: LEVOTHYROXINE SODIUM 25MCG TABLET PO SCH (07:02)
[2019-04-02 07:53] VITALS: BP 134/64
[2019-04-02] MEDS: FINASTERIDE 5MG TABLET PO SCH (09:28)
[2019-04-02] MEDS: SILVER SULFADIAZINE 1% CREAM 50GM TOP SCH (09:29)
[2019-04-02] MEDS: APIXABAN 5 MG TABLET PO SCH ×2 (09:29→16:28)
[2019-04-02] MEDS: TAMSULOSIN HCL 0.4MG SR CAPSULE PO SCH ×2 (09:29→16:28)
[2019-04-02] MEDS: LEVOFLOXACIN 500MG TABLET PO SCH (11:35)
[2019-04-02] MEDS: GUAIFENESIN/DM 600MG/30MG ER TAB 12HR PO PRN (16:28)
[2019-04-02] MEDS: MULTIVITAMINS,THER W-MINERALS TABLET PO SCH (16:29)
[2019-04-02 17:06] LABS: 25-HYDROXY VITAMIN D3 15 ng/mL (.)
[2019-04-02 20:00] VITALS: BP 150/85
[2019-04-03] MEDS: LACTULOSE 20G/30ML UDC PO SCH ×3 (06:00→22:00)
[2019-04-03] MEDS: LEVOTHYROXINE SODIUM 25MCG TABLET PO SCH (06:42)
[2019-04-03 07:14] LABS: BASOPHILS % 1.2 % (0.0-2.0); EOSINOPHILS % 3.3 % (0.0-5.0); HEMATOCRIT. 32.8 % (42.0-52.0); LYMPHOCYTES % 15.6 % (20.0-50.0); MEAN CORPUSCULAR HEMOGLOBIN 29.3 pg (28.0-32.0); MEAN CORPUSCULAR VOLUME 87.6 fL (80.0-94.0); MEAN PLATELET VOLUME 8.5 fl (7.4-10.4); MONOCYTES % 9.4 % (2.0-8.0); NEUTROPHILS % 70.5 % (40.0-76.0); PLATELET 271 x1000/uL (130-400); RED BLOOD CELL COUNT 3.74 mill/uL (4.7-6.1); RED CELL DISTRIBUTION WIDTH 15.7 % (11.6-14.6)
[2019-04-03 07:21] LABS: CHLORIDE 112 mEq/L (98-107)
[2019-04-03 08:00] VITALS: BP 134/64
[2019-04-03] MEDS: TAMSULOSIN HCL 0.4MG SR CAPSULE PO SCH ×2 (09:14→18:08)
[2019-04-03] MEDS: MULTIVITAMINS,THER W-MINERALS TABLET PO SCH (09:15)
[2019-04-03] MEDS: FINASTERIDE 5MG TABLET PO SCH (09:15)
[2019-04-03] MEDS: SILVER SULFADIAZINE 1% CREAM 50GM TOP SCH (09:15)
[2019-04-03] MEDS: APIXABAN 5 MG TABLET PO SCH ×2 (09:15→18:08)
[2019-04-03] MEDS: LEVOFLOXACIN 500MG TABLET PO SCH (11:39)
[2019-04-03] MEDS: POTASSIUM CHLORIDE 20MEQ TABLET SR PO NR ×2 (16:43→16:48)
[2019-04-03] MEDS: ERGOCALCIFEROL 50000UNITS CAPSULE PO SCH ×2 (16:43→16:50)
[2019-04-03] MEDS: CEFTRIAXONE 1 G PREMIX 50 ML IV SCH (19:32)
[2019-04-03 20:00] VITALS: BP 132/79
[2019-04-04 05:41] LABS: CHLORIDE 114 mEq/L (98-107)
[2019-04-04] MEDS: LACTULOSE 20G/30ML UDC PO SCH ×3 (07:26→21:06)
[2019-04-04] MEDS: LEVOTHYROXINE SODIUM 25MCG TABLET PO SCH (07:26)
[2019-04-04 08:35] VITALS: BP 133/79
[2019-04-04] MEDS: TAMSULOSIN HCL 0.4MG SR CAPSULE PO SCH ×2 (08:52→16:32)
[2019-04-04] MEDS: MULTIVITAMINS,THER W-MINERALS TABLET PO SCH (08:52)
[2019-04-04] MEDS: FINASTERIDE 5MG TABLET PO SCH (08:52)
[2019-04-04] MEDS: SILVER SULFADIAZINE 1% CREAM 50GM TOP SCH (08:53)
[2019-04-04] MEDS ORDERED: POTASSIUM CHLORIDE 20MEQ TABLET SR PO SCH (09:45)
[2019-04-04] MEDS: APIXABAN 5 MG TABLET PO SCH ×2 (10:13→16:32)
[2019-04-04] MEDS: CEFTRIAXONE 1 G PREMIX 50 ML IV SCH (17:52)
[2019-04-04 20:00] VITALS: BP 134/85
[2019-04-05] MEDS: LACTULOSE 20G/30ML UDC PO SCH ×3 (06:00→22:00)
[2019-04-05] MEDS: LEVOTHYROXINE SODIUM 25MCG TABLET PO SCH (06:00)
[2019-04-05 08:09] VITALS: BP 145/91
[2019-04-05] MEDS: SILVER SULFADIAZINE 1% CREAM 50GM TOP SCH (08:44)
[2019-04-05] MEDS: APIXABAN 5 MG TABLET PO SCH ×2 (08:44→16:07)
[2019-04-05] MEDS: MULTIVITAMINS,THER W-MINERALS TABLET PO SCH (08:44)
[2019-04-05] MEDS: TAMSULOSIN HCL 0.4MG SR CAPSULE PO SCH ×2 (08:44→16:08)
[2019-04-05] MEDS: FINASTERIDE 5MG TABLET PO SCH (08:44)
[2019-04-05] MEDS: CEFTRIAXONE 1 G PREMIX 50 ML IV SCH (17:14)
[2019-04-05 20:00] VITALS: BP 121/88
[2019-04-05] MEDS: CEPHALEXIN 250MG CAPSULE PO SCH (22:27)
[2019-04-06] MEDS ORDERED: CEPHALEXIN 250 MG/5 ML 100ML PO SCH
[2019-04-06] MEDS: LACTULOSE 20G/30ML UDC PO SCH ×3 (06:00→20:46)
[2019-04-06] MEDS: LEVOTHYROXINE SODIUM 25MCG TABLET PO SCH (06:42)
[2019-04-06 08:00] VITALS: BP 141/92
[2019-04-06] MEDS: CEPHALEXIN 250MG CAPSULE PO SCH ×4 (09:03→20:45)
[2019-04-06] MEDS: FINASTERIDE 5MG TABLET PO SCH (09:03)
[2019-04-06] MEDS: APIXABAN 5 MG TABLET PO SCH ×2 (09:03→16:39)
[2019-04-06] MEDS: MULTIVITAMINS,THER W-MINERALS TABLET PO SCH (09:04)
[2019-04-06] MEDS: TAMSULOSIN HCL 0.4MG SR CAPSULE PO SCH ×2 (09:04→16:39)
[2019-04-06] MEDS: SILVER SULFADIAZINE 1% CREAM 50GM TOP SCH (09:05)
[2019-04-06] MEDS: GUAIFENESIN/DM 600MG/30MG ER TAB 12HR PO PRN (12:06)
[2019-04-06 20:00] VITALS: BP 141/81
[2019-04-07] MEDS: LACTULOSE 20G/30ML UDC PO SCH ×3 (05:21→21:25)
[2019-04-07] MEDS: LEVOTHYROXINE SODIUM 25MCG TABLET PO SCH (06:09)
[2019-04-07 06:45] LABS: BASOPHILS % 1.2 % (0.0-2.0); EOSINOPHILS % 5.2 % (0.0-5.0); HEMATOCRIT. 34.3 % (42.0-52.0); HEMOGLOBIN. 11.6 g/dL (14.0-18.0); LYMPHOCYTES % 12.7 % (20.0-50.0); MEAN CORPUSCULAR HEMOGLOBIN 29.6 pg (28.0-32.0); MEAN CORPUSCULAR VOLUME 87.8 fL (80.0-94.0); MONOCYTES % 7.1 % (2.0-8.0); NEUTROPHILS % 73.8 % (40.0-76.0); PLATELET 172 x1000/uL (130-400); RED BLOOD CELL COUNT 3.91 mill/uL (4.7-6.1); RED CELL DISTRIBUTION WIDTH 15.8 % (11.6-14.6)
[2019-04-07 07:06] LABS: CHLORIDE 114 mEq/L (98-107)
[2019-04-07 08:00] VITALS: BP 155/90
[2019-04-07] MEDS: TAMSULOSIN HCL 0.4MG SR CAPSULE PO SCH ×2 (08:38→16:39)
[2019-04-07] MEDS: CEPHALEXIN 250MG CAPSULE PO SCH ×4 (08:38→21:25)
[2019-04-07] MEDS: MULTIVITAMINS,THER W-MINERALS TABLET PO SCH (08:38)
[2019-04-07] MEDS: FINASTERIDE 5MG TABLET PO SCH (08:38)
[2019-04-07] MEDS: APIXABAN 5 MG TABLET PO SCH ×2 (08:38→16:39)
[2019-04-07] MEDS: SILVER SULFADIAZINE 1% CREAM 50GM TOP SCH (08:42)
[2019-04-07] MEDS ORDERED: POTASSIUM CHLORIDE 20MEQ TABLET SR PO NR (15:00)
[2019-04-07] MEDS: GUAIFENESIN/DM 600MG/30MG ER TAB 12HR PO PRN (16:40)
[2019-04-07 20:00] VITALS: BP 135/76
[2019-04-08] MEDS: LACTULOSE 20G/30ML UDC PO SCH ×3 (05:16→21:48)
[2019-04-08] MEDS: LEVOTHYROXINE SODIUM 25MCG TABLET PO SCH (06:05)
[2019-04-08 08:00] VITALS: BP 149/85
[2019-04-08] MEDS: SILVER SULFADIAZINE 1% CREAM 50GM TOP SCH (09:00)
[2019-04-08] MEDS: CEPHALEXIN 250MG CAPSULE PO SCH ×4 (09:06→21:45)
[2019-04-08] MEDS: APIXABAN 5 MG TABLET PO SCH ×2 (09:07→18:47)
[2019-04-08] MEDS: TAMSULOSIN HCL 0.4MG SR CAPSULE PO SCH ×2 (09:07→17:21)
[2019-04-08] MEDS: FINASTERIDE 5MG TABLET PO SCH (09:07)
[2019-04-08] MEDS: MULTIVITAMINS,THER W-MINERALS TABLET PO SCH (09:07)
[2019-04-08] MEDS: POTASSIUM CHLORIDE 10MEQ TABLET SR PO SCH (09:07)
[2019-04-08 20:00] VITALS: BP 128/76
[2019-04-09] MEDS: LACTULOSE 20G/30ML UDC PO SCH ×3 (06:00→22:00)
[2019-04-09] MEDS: LEVOTHYROXINE SODIUM 25MCG TABLET PO SCH (06:22)
[2019-04-09 08:00] VITALS: BP 135/78
[2019-04-09] MEDS: CEPHALEXIN 250MG CAPSULE PO SCH ×4 (08:28→20:13)
[2019-04-09] MEDS: MULTIVITAMINS,THER W-MINERALS TABLET PO SCH (08:28)
[2019-04-09] MEDS: TAMSULOSIN HCL 0.4MG SR CAPSULE PO SCH ×2 (08:28→16:06)
[2019-04-09] MEDS: POTASSIUM CHLORIDE 10MEQ TABLET SR PO SCH (08:28)
[2019-04-09] MEDS: FINASTERIDE 5MG TABLET PO SCH (08:28)
[2019-04-09] MEDS: SILVER SULFADIAZINE 1% CREAM 50GM TOP SCH (08:29)
[2019-04-09] MEDS: APIXABAN 5 MG TABLET PO SCH ×2 (08:29→16:05)
[2019-04-09 09:06] LABS: EOSINOPHILS % 3.1 % (0.0-5.0); HEMATOCRIT. 40.5 % (42.0-52.0); HEMOGLOBIN. 13.4 g/dL (14.0-18.0); LYMPHOCYTES % 10.9 % (20.0-50.0); MEAN CORPUSCULAR HEMOGLOBIN 29.5 pg (28.0-32.0); MEAN CORPUSCULAR VOLUME 89.2 fL (80.0-94.0); PLATELET 179 x1000/uL (130-400); RED BLOOD CELL COUNT 4.54 mill/uL (4.7-6.1); RED CELL DISTRIBUTION WIDTH 16.9 % (11.6-14.6)
[2019-04-09 09:10] LABS: CHLORIDE 114 mEq/L (98-107)
[2019-04-09] MEDS ORDERED: POTASSIUM CHLORIDE 20MEQ TABLET SR PO NR (17:59)
[2019-04-09 20:00] VITALS: BP 142/69
[2019-04-10] MEDS: LACTULOSE 20G/30ML UDC PO SCH ×3 (05:55→21:50)
[2019-04-10] MEDS: LEVOTHYROXINE SODIUM 25MCG TABLET PO SCH (06:31)
[2019-04-10 08:00] VITALS: BP 153/83
[2019-04-10] MEDS: CEPHALEXIN 250MG CAPSULE PO SCH (08:57)
[2019-04-10] MEDS: APIXABAN 5 MG TABLET PO SCH ×2 (08:57→16:21)
[2019-04-10] MEDS: POTASSIUM CHLORIDE 10MEQ TABLET SR PO SCH (08:57)
[2019-04-10] MEDS: ERGOCALCIFEROL 50000UNITS CAPSULE PO SCH (08:57)
[2019-04-10] MEDS: MULTIVITAMINS,THER W-MINERALS TABLET PO SCH (08:57)
[2019-04-10] MEDS: SILVER SULFADIAZINE 1% CREAM 50GM TOP SCH (08:58)
[2019-04-10] MEDS: FINASTERIDE 5MG TABLET PO SCH (08:58)
[2019-04-10] MEDS: TAMSULOSIN HCL 0.4MG SR CAPSULE PO SCH ×2 (08:58→16:21)
[2019-04-10 20:00] VITALS: BP 136/76
[2019-04-11] MEDS: LACTULOSE 20G/30ML UDC PO SCH ×2 (06:00→13:20)
[2019-04-11 07:46] VITALS: BP 151/83
[2019-04-11] MEDS: SILVER SULFADIAZINE 1% CREAM 50GM TOP SCH (08:14)
[2019-04-11] MEDS: FINASTERIDE 5MG TABLET PO SCH (08:14)
[2019-04-11] MEDS: POTASSIUM CHLORIDE 10MEQ TABLET SR PO SCH (08:14)
[2019-04-11] MEDS: TAMSULOSIN HCL 0.4MG SR CAPSULE PO SCH (08:14)
[2019-04-11] MEDS: MULTIVITAMINS,THER W-MINERALS TABLET PO SCH (08:14)
[2019-04-11] MEDS: APIXABAN 5 MG TABLET PO SCH (08:14)
[2019-04-11] MEDS: LEVOTHYROXINE SODIUM 25MCG TABLET PO SCH (08:14)
[2019-04-11 09:08] VITALS: BP 151/83
== END 2019-04-11 14:00 | DRG 91 ==
PROVIDERS: ADMIT Physical Medicine & Rehabilitation Spinal Cord Injury Medicine; ATTEND Internal Medicine
PROC: 4A10X4Z Monitoring of Central Nervous Electrical Activity, External Approach (ICD-10-PCS; principal; 2019-03-31)
PROC: 0HBRXZZ Excision of Toe Nail, External Approach (ICD-10-PCS; 2019-04-05)
PROC: 0HBRXZZ Excision of Toe Nail, External Approach (ICD-10-PCS; 2019-04-05)
PROC: 0HBRXZZ Excision of Toe Nail, External Approach (ICD-10-PCS; 2019-04-05)
PROC: 0HBRXZZ Excision of Toe Nail, External Approach (ICD-10-PCS; 2019-04-05)
PROC: 0HBRXZZ Excision of Toe Nail, External Approach (ICD-10-PCS; 2019-04-05)
PROC: 0HBRXZZ Excision of Toe Nail, External Approach (ICD-10-PCS; 2019-04-05)
PROC: 0HBRXZZ Excision of Toe Nail, External Approach (ICD-10-PCS; 2019-04-05)
PROC: 0HBRXZZ Excision of Toe Nail, External Approach (ICD-10-PCS; 2019-04-05)
PROC: 0HBRXZZ Excision of Toe Nail, External Approach (ICD-10-PCS; 2019-04-05)
PROC: 0HBRXZZ Excision of Toe Nail, External Approach (ICD-10-PCS; 2019-04-05)
DX: G92 Toxic encephalopathy (principal); A41.51 Sepsis due to Escherichia coli [E. coli]; I21.4 Non-ST elevation (NSTEMI) myocardial infarction; I26.99 Other pulmonary embolism without acute cor pulmonale; G82.50 Quadriplegia, unspecified; E43 Unspecified severe protein-calorie malnutrition; R65.21 Severe sepsis with septic shock; J96.00 Acute respiratory failure, unspecified whether with hypoxia or hypercapnia; R47.01 Aphasia; M62.82 Rhabdomyolysis; N17.9 Acute kidney failure, unspecified; G62.81 Critical illness polyneuropathy; L97.319 Non-pressure chronic ulcer of right ankle with unspecified severity; N39.0 Urinary tract infection, site not specified; R13.10 Dysphagia, unspecified; R47.1 Dysarthria and anarthria; R19.7 Diarrhea, unspecified; M48.061 Spinal stenosis, lumbar region without neurogenic claudication; B35.1 Tinea unguium; D64.9 Anemia, unspecified; I10 Essential (primary) hypertension; I89.0 Lymphedema, not elsewhere classified; L60.2 Onychogryphosis; L60.3 Nail dystrophy; N32.0 Bladder-neck obstruction; B96.1 Klebsiella pneumoniae [K. pneumoniae] as the cause of diseases classified elsewhere; R53.81 Other malaise; R94.6 Abnormal results of thyroid function studies; R33.9 Retention of urine, unspecified; E87.8 Other disorders of electrolyte and fluid balance, not elsewhere classified; R26.9 Unspecified abnormalities of gait and mobility; R73.9 Hyperglycemia, unspecified; F06.31 Mood disorder due to known physiological condition with depressive features; M47.812 Spondylosis without myelopathy or radiculopathy, cervical region; F06.8 Other specified mental disorders due to known physiological condition; B96.4 Proteus (mirabilis) (morganii) as the cause of diseases classified elsewhere; D69.6 Thrombocytopenia, unspecified; Z86.711 Personal history of pulmonary embolism; I25.2 Old myocardial infarction; Z68.26 Body mass index [BMI] 26.0-26.9, adult; Z79.899 Other long term (current) drug therapy; Z79.01 Long term (current) use of anticoagulants
CPT/HCPCS: 36415; 72141; 72146; 72148; 80048; 81003; 82306; 83735; 84100; 84132; 84134; 84439; 84443; 86376; 87077; 87186; 92523; 92610; 93970; 97110; 97112; 97116; 97162; 97167; 97530; 97535; J0696; J3475; J7040; J7620; A4315; A5200

== ENCOUNTER 2019-06-02 06:11 | Emergency (ER) | payer MEDICARE, MEDICAID ==
[~2019-06-02] VITALS: Ht 175.3 cm; Wt 70.0 kg
[~2019-06-02 06:11] MED LIST: APIX5TAB PO; LEVO500T2 MT
[2019-06-02 07:41] LABS: CLARITY URINE TURBID (CLEAR); COLOR URINE ORANGE (YELLOW); KETONES URINE NEGATIVE (NEGATIVE); LEUKOCYTE ESTERASE URINE 2+ (NEGATIVE); NITRITE URINE NEGATIVE (NEGATIVE); OCCULT BLOOD URINE 3+ (NEGATIVE); PH URINE 5.5 (4.5-8.0); PROTEIN URINE 2+ (NEGATIVE); SPECIFIC GRAVITY URINE 1.017 (1.005-1.030); UROBILINOGEN URINE 0.2 E.U./dL (0.2-1.0)
[2019-06-02 20:26] VITALS: BP 145/77
== END 2019-06-02 20:30 | disposition home or self-care (01) ==
LOC: ER 06:11
DX: N39.0 Urinary tract infection, site not specified (principal); T83.091A Other mechanical complication of indwelling urethral catheter, initial encounter; I10 Essential (primary) hypertension; Z86.73 Personal history of transient ischemic attack (TIA), and cerebral infarction without residual deficits
CPT/HCPCS: 81003; 87077; 87186; 99284; A4315

== ENCOUNTER 2019-06-16 21:11 | Inpatient (IN) | payer MEDICARE, MEDICAID ==
[~2019-06-16] VITALS: Ht 165.1 cm; Wt 81.6 kg
[2019-06-16] MEDS ORDERED: ACETAMINOPHEN 325MG TABLET PO ONE (22:45)
[2019-06-16 23:08] LABS: BASOPHILS % 0.7 % (0.0-2.0); EOSINOPHILS % 0.7 % (0.0-5.0); HEMATOCRIT. 45.9 % (42.0-52.0); HEMOGLOBIN. 15.1 g/dL (14.0-18.0); LYMPHOCYTES % 8.9 % (20.0-50.0); MEAN CORPUSCULAR HEMOGLOBIN 27.5 pg (28.0-32.0); MEAN CORPUSCULAR VOLUME 83.5 fL (80.0-94.0); MEAN PLATELET VOLUME 9.3 fl (7.4-10.4); MONOCYTES % 5.9 % (2.0-8.0); NEUTROPHILS % 83.8 % (40.0-76.0); PLATELET 229 x1000/uL (130-400); RED CELL DISTRIBUTION WIDTH 14.6 % (11.6-14.6)
[2019-06-16 23:10] LABS: CHLORIDE 113 mEq/L (98-107)
[2019-06-16 23:29] LABS: CLARITY URINE CLEAR (CLEAR); COLOR URINE YELLOW (YELLOW); KETONES URINE NEGATIVE (NEGATIVE); LEUKOCYTE ESTERASE URINE NEGATIVE (NEGATIVE); NITRITE URINE NEGATIVE (NEGATIVE); OCCULT BLOOD URINE 3+ (NEGATIVE); PH URINE 5.5 (4.5-8.0); PROTEIN URINE NEGATIVE (NEGATIVE); SPECIFIC GRAVITY URINE 1.016 (1.005-1.030); UROBILINOGEN URINE 0.2 E.U./dL (0.2-1.0)
[2019-06-17] MEDS ORDERED: CEFTRIAXONE 1 G PREMIX 50 ML IV ONE (02:30)
[2019-06-17] MEDS ORDERED: IOHEXOL-300 100 ML BOTTLE ONE (04:31)
[2019-06-17 04:45] VITALS: BP 145/81
[2019-06-17 08:00] VITALS: BP 145/74
[2019-06-17 08:50] LABS: BASOPHILS % 1.2 % (0.0-2.0); HEMATOCRIT. 38.9 % (42.0-52.0); HEMOGLOBIN. 13.4 g/dL (14.0-18.0); LYMPHOCYTES % 18.9 % (20.0-50.0); MEAN CORPUSCULAR HEMOGLOBIN 28.1 pg (28.0-32.0); MEAN CORPUSCULAR VOLUME 81.6 fL (80.0-94.0); MONOCYTES % 9.5 % (2.0-8.0); NEUTROPHILS % 67.4 % (40.0-76.0); PLATELET 184 x1000/uL (130-400); RED BLOOD CELL COUNT 4.77 mill/uL (4.7-6.1); RED CELL DISTRIBUTION WIDTH 14.3 % (11.6-14.6)
[2019-06-17 09:03] LABS: CHLORIDE 115 mEq/L (98-107)
[2019-06-17] MEDS: APIXABAN 5 MG TABLET PO SCH ×2 (09:21→17:31)
[2019-06-17] MEDS: METOPROLOL TARTRATE 50MG TABLET PO SCH ×2 (09:21→20:20)
[2019-06-17] MEDS ORDERED: POTASSIUM CHLORIDE 20MEQ TABLET SR PO SCH (10:15)
[2019-06-17] MEDS ORDERED: ONDANSETRON HCL 4MG/2ML INJ IV PRN (10:15)
[2019-06-17] MEDS ORDERED: ACETAMINOPHEN 325MG TABLET PO PRN (10:15)
[2019-06-17] MEDS ORDERED: IPRATROPIUM/ALBUTEROL 0.5-3(2.5)MG/3ML NEB HHN PRN (10:15)
[2019-06-17] MEDS: ASPIRIN 81MG TABLET PO SCH (11:00)
[2019-06-17 12:00] VITALS: BP 125/71
[2019-06-17] MEDS ORDERED: BISACODYL 10MG SUPP PR SCH (12:15)
[2019-06-17] MEDS: DOCUSATE SODIUM 250MG CAPSULE PO SCH (13:30)
[2019-06-17] MEDS: TAMSULOSIN HCL 0.4MG SR CAPSULE PO SCH (13:52)
[2019-06-17 16:00] VITALS: BP 135/75
[2019-06-17 20:00] VITALS: BP 109/70
[2019-06-18] VITALS: BP 123/76
[2019-06-18] MEDS ORDERED: CEFTRIAXONE 1 G PREMIX 50 ML IV SCH (01:00)
[2019-06-18 04:00] VITALS: BP 130/68
[2019-06-18 07:36] LABS: BASOPHILS % 2.2 % (0.0-2.0); EOSINOPHILS % 3.4 % (0.0-5.0); HEMATOCRIT. 39.7 % (42.0-52.0); HEMOGLOBIN. 13.6 g/dL (14.0-18.0); LYMPHOCYTES % 16.7 % (20.0-50.0); MEAN CORPUSCULAR HEMOGLOBIN 28.1 pg (28.0-32.0); MEAN CORPUSCULAR VOLUME 82.5 fL (80.0-94.0); MEAN PLATELET VOLUME 9.2 fl (7.4-10.4); MONOCYTES % 8.7 % (2.0-8.0); PLATELET 176 x1000/uL (130-400); RED BLOOD CELL COUNT 4.82 mill/uL (4.7-6.1); RED CELL DISTRIBUTION WIDTH 14.2 % (11.6-14.6)
[2019-06-18 07:42] LABS: CHLORIDE 108 mEq/L (98-107)
[2019-06-18 08:00] VITALS: BP 117/67
[2019-06-18] MEDS ORDERED: BISACODYL 10MG SUPP PR PRN (09:00)
[2019-06-18] MEDS: APIXABAN 5 MG TABLET PO SCH (09:18)
[2019-06-18] MEDS: TAMSULOSIN HCL 0.4MG SR CAPSULE PO SCH (09:18)
[2019-06-18] MEDS: ASPIRIN 81MG TABLET PO SCH (09:18)
[2019-06-18] MEDS: DOCUSATE SODIUM 250MG CAPSULE PO SCH (09:18)
[2019-06-18] MEDS: METOPROLOL TARTRATE 50MG TABLET PO SCH (09:19)
[2019-06-18 12:00] VITALS: BP 97/62
[2019-06-18] MEDS ORDERED: LEVO500T2 PO (12:28)
[2019-06-18 15:26] VITALS: BP 134/78
[2019-06-18 16:00] VITALS: BP 102/65
== END 2019-06-18 17:02 | disposition home or self-care (01) | DRG 392 ==
LOC: ER 21:11 → 6EST 06-17 02:51 → ENRESERV 06-17 03:42
PROVIDERS: ADMIT Internal Medicine; ATTEND Internal Medicine
DX: K59.00 Constipation, unspecified (principal); N12 Tubulo-interstitial nephritis, not specified as acute or chronic; I10 Essential (primary) hypertension; E87.8 Other disorders of electrolyte and fluid balance, not elsewhere classified; Z86.711 Personal history of pulmonary embolism; Z79.01 Long term (current) use of anticoagulants; Z86.73 Personal history of transient ischemic attack (TIA), and cerebral infarction without residual deficits; Z85.118 Personal history of other malignant neoplasm of bronchus and lung; Z79.899 Other long term (current) drug therapy
CPT/HCPCS: 36415; 74177; 80048; 80053; 81003; 85025; 96365; 99285; J0696; Q9967; A4315

== ENCOUNTER 2019-07-07 16:26 | Emergency (ER) | payer MEDICARE, MEDICAID ==
[~2019-07-07] VITALS: Ht 162.6 cm; Wt 66.2 kg
[~2019-07-07 16:26] MED LIST changes: -LEVO500T2 MT; +LEVO500T2 PO
[2019-07-07] MEDS ORDERED: HYDROCODONE/ACETAMINOPHEN 5/325MG TABLET PO ONE (22:00)
[2019-07-07] MEDS ORDERED: ASPIRIN 81MG TABLET PO ONE (22:00)
[2019-07-07] MEDS ORDERED: KETOROLAC 30MG/ML VIAL IM ONE (22:00)
[2019-07-08 00:10] LABS: CHLORIDE 111 mEq/L (98-107)
[2019-07-08 00:11] LABS: BASOPHILS % 0.7 % (0.0-2.0); EOSINOPHILS % 2.6 % (0.0-5.0); HEMATOCRIT. 46.2 % (42.0-52.0); HEMOGLOBIN. 15.2 g/dL (14.0-18.0); LYMPHOCYTES % 16.9 % (20.0-50.0); MEAN CORPUSCULAR HEMOGLOBIN 27.5 pg (28.0-32.0); MEAN CORPUSCULAR VOLUME 83.4 fL (80.0-94.0); MONOCYTES % 9.2 % (2.0-8.0); NEUTROPHILS % 70.6 % (40.0-76.0); PLATELET 187 x1000/uL (130-400); RED BLOOD CELL COUNT 5.54 mill/uL (4.7-6.1); RED CELL DISTRIBUTION WIDTH 14.8 % (11.6-14.6)
[2019-07-08 06:00] VITALS: BP 137/69
== END 2019-07-08 11:44 | disposition home or self-care (01) ==
LOC: ER 16:26
DX: M54.2 Cervicalgia (principal); R07.89 Other chest pain; I10 Essential (primary) hypertension; Z85.9 Personal history of malignant neoplasm, unspecified; Z59.0 Homelessness; Z86.73 Personal history of transient ischemic attack (TIA), and cerebral infarction without residual deficits
CPT/HCPCS: 36415; 71045; 80053; 83880; 84484; 85025; 93005; 96372; 99284; J1885

== ENCOUNTER 2019-07-24 19:01 | Inpatient (IN) | payer MEDICARE, MEDICAID ==
[~2019-07-24] VITALS: Ht 165.1 cm; Wt 79.6 kg
[2019-07-25] MEDS ORDERED: ONDANSETRON HCL 4MG/2ML INJ IV STA (01:41)
[2019-07-25] MEDS ORDERED: MORPHINE SULFATE 4 MG/ML CPJ (NOT FOR IM USE) IV STA (01:41)
[2019-07-25] MEDS ORDERED: SODIUM CHLORIDE 0.9% 1,000 ML IV ONE (01:41)
[2019-07-25 02:27] LABS: BASOPHILS % 1.2 % (0.0-2.0); EOSINOPHILS % 1.9 % (0.0-5.0); HEMATOCRIT. 42.8 % (42.0-52.0); HEMOGLOBIN. 14.5 g/dL (14.0-18.0); MEAN CORPUSCULAR HEMOGLOBIN 27.8 pg (28.0-32.0); MEAN PLATELET VOLUME 9.1 fl (7.4-10.4); MONOCYTES % 9.2 % (2.0-8.0); NEUTROPHILS % 70.7 % (40.0-76.0); PLATELET 204 x1000/uL (130-400); RED BLOOD CELL COUNT 5.22 mill/uL (4.7-6.1); RED CELL DISTRIBUTION WIDTH 14.9 % (11.6-14.6)
[2019-07-25 02:35] LABS: CHLORIDE 110 mEq/L (98-107)
[2019-07-25 02:48] LABS: CLARITY URINE CLOUDY (CLEAR); COLOR URINE YELLOW (YELLOW); KETONES URINE NEGATIVE (NEGATIVE); LEUKOCYTE ESTERASE URINE 2+ (NEGATIVE); NITRITE URINE POSITIVE (NEGATIVE); OCCULT BLOOD URINE 3+ (NEGATIVE); PH URINE 5.5 (4.5-8.0); PROTEIN URINE 2+ (NEGATIVE); SPECIFIC GRAVITY URINE 1.024 (1.005-1.030); UROBILINOGEN URINE 0.2 E.U./dL (0.2-1.0)
[2019-07-25 03:04] LABS: D-DIMER 0.4 mg/L FEU (<0.50); PARTIAL THROMBOPLASTIN TIME 29.7 sec (23.4-31.0); PROTHROMBIN TIME 10.9 sec (9.6-11.0)
[2019-07-25] MEDS ORDERED: CEFTRIAXONE 1 G PREMIX 50 ML IV ONE (04:15)
[2019-07-25] MEDS ORDERED: ONDANSETRON HCL 4MG/2ML INJ IV PRN (09:30)
[2019-07-25] MEDS ORDERED: CEFTRIAXONE 1 G PREMIX 50 ML IV SCH (09:30)
[2019-07-25] MEDS ORDERED: ACETAMINOPHEN 325MG TABLET PO PRN (15:04)
[2019-07-25] MEDS ORDERED: HYDROCODONE/ACETAMINOPHEN 5/325MG TABLET PO PRN (15:05)
[2019-07-25 16:00] VITALS: BP 131/69
[2019-07-25 16:30] VITALS: BP 131/69
[2019-07-25] MEDS: APIXABAN 5 MG TABLET PO SCH (18:01)
[2019-07-25 20:00] VITALS: BP 119/67
[2019-07-25] MEDS: AMLODIPINE 5MG TABLET PO SCH (21:19)
[2019-07-26] VITALS: BP 121/66
[2019-07-26 04:00] VITALS: BP 125/71
[2019-07-26] MEDS: CEFTRIAXONE 1 G PREMIX 50 ML IV SCH (05:27)
[2019-07-26 07:02] LABS: CHLORIDE 112 mEq/L (98-107)
[2019-07-26 07:19] LABS: BASOPHILS % 0.7 % (0.0-2.0); EOSINOPHILS % 2.6 % (0.0-5.0); HEMATOCRIT. 40.5 % (42.0-52.0); HEMOGLOBIN. 13.8 g/dL (14.0-18.0); LYMPHOCYTES % 16.3 % (20.0-50.0); MEAN CORPUSCULAR HEMOGLOBIN 27.7 pg (28.0-32.0); MEAN CORPUSCULAR VOLUME 81.2 fL (80.0-94.0); MEAN PLATELET VOLUME 9.4 fl (7.4-10.4); MONOCYTES % 8.1 % (2.0-8.0); NEUTROPHILS % 72.3 % (40.0-76.0); PLATELET 171 x1000/uL (130-400); RED BLOOD CELL COUNT 4.99 mill/uL (4.7-6.1); RED CELL DISTRIBUTION WIDTH 14.8 % (11.6-14.6)
[2019-07-26 08:00] VITALS: BP 128/75
[2019-07-26] MEDS: APIXABAN 5 MG TABLET PO SCH ×2 (09:09→16:37)
[2019-07-26] MEDS: AMLODIPINE 5MG TABLET PO SCH ×2 (09:10→21:15)
[2019-07-26 12:00] VITALS: BP 130/82
[2019-07-26] MEDS ORDERED: POTASSIUM CHLORIDE 20MEQ TABLET SR PO NR (12:00)
[2019-07-26 16:00] VITALS: BP 112/60
[2019-07-26 20:00] VITALS: BP 135/72
[2019-07-27] VITALS: BP 130/80
[2019-07-27 04:00] VITALS: BP 108/78
[2019-07-27] MEDS: CEFTRIAXONE 1 G PREMIX 50 ML IV SCH (04:36)
[2019-07-27 07:09] LABS: CHLORIDE 110 mEq/L (98-107)
[2019-07-27 08:06] VITALS: BP 140/75
[2019-07-27] MEDS: AMLODIPINE 5MG TABLET PO SCH (08:50)
[2019-07-27] MEDS: APIXABAN 5 MG TABLET PO SCH ×2 (08:50→17:03)
[2019-07-27 12:05] VITALS: BP 137/79
[2019-07-27] MEDS ORDERED: LEVO500T2 PO (12:45)
[2019-07-27 16:00] VITALS: BP 148/75
[2019-07-27 19:11] VITALS: BP 148/75
== END 2019-07-27 20:35 | disposition home or self-care (01) | DRG 690 ==
LOC: ER 19:01 → EDBEDREQTM 07-25 05:55 → EDBEDREQ 07-25 05:55 → CANRESERV 07-25 14:04 → ENRESERV 07-25 14:04 → 6WST 07-25 14:57
PROVIDERS: ADMIT Internal Medicine; ATTEND Internal Medicine
DX: N10 Acute pyelonephritis (principal); E87.8 Other disorders of electrolyte and fluid balance, not elsewhere classified; I11.9 Hypertensive heart disease without heart failure; M16.0 Bilateral primary osteoarthritis of hip; N40.0 Benign prostatic hyperplasia without lower urinary tract symptoms; I70.0 Atherosclerosis of aorta; K57.30 Diverticulosis of large intestine without perforation or abscess without bleeding; I25.10 Atherosclerotic heart disease of native coronary artery without angina pectoris; Z85.038 Personal history of other malignant neoplasm of large intestine; Z86.73 Personal history of transient ischemic attack (TIA), and cerebral infarction without residual deficits; Z79.01 Long term (current) use of anticoagulants; Z86.711 Personal history of pulmonary embolism; Z79.899 Other long term (current) drug therapy
CPT/HCPCS: 36415; 71045; 74176; 80048; 80053; 81003; 83880; 84484; 85025; 85379; 86850; 86900; 87077; 87186; 93005; 96365; 99285; J0696; J2270; J2405; J7030

== ENCOUNTER 2019-08-11 22:41 | Emergency (ER) | payer MEDICARE, MEDICAID ==
[~2019-08-11] VITALS: Ht 177.8 cm; Wt 73.0 kg
[2019-08-11] MEDS ORDERED: SODIUM CHLORIDE 0.9% 1,000 ML IV ONE (23:13)
[2019-08-11] MEDS ORDERED: ACETAMINOPHEN 325MG TABLET PO STA (23:13)
[2019-08-12] LABS: BASOPHILS % 0.5 % (0.0-2.0); EOSINOPHILS % 2.5 % (0.0-5.0); HEMATOCRIT. 41.9 % (42.0-52.0); HEMOGLOBIN. 14.3 g/dL (14.0-18.0); LYMPHOCYTES % 14.4 % (20.0-50.0); MEAN CORPUSCULAR HEMOGLOBIN 28.1 pg (28.0-32.0); MEAN CORPUSCULAR VOLUME 82.2 fL (80.0-94.0); MEAN PLATELET VOLUME 8.5 fl (7.4-10.4); MONOCYTES % 8.6 % (2.0-8.0); PLATELET 215 x1000/uL (130-400); RED CELL DISTRIBUTION WIDTH 15.6 % (11.6-14.6)
[2019-08-12 00:08] LABS: CHLORIDE 114 mEq/L (98-107)
[2019-08-12 02:45] LABS: CLARITY URINE CLOUDY (CLEAR); COLOR URINE YELLOW (YELLOW); KETONES URINE TRACE (NEGATIVE); LEUKOCYTE ESTERASE URINE 2+ (NEGATIVE); NITRITE URINE POSITIVE (NEGATIVE); OCCULT BLOOD URINE 2+ (NEGATIVE); PROTEIN URINE 2+ (NEGATIVE); SPECIFIC GRAVITY URINE 1.021 (1.005-1.030); UROBILINOGEN URINE 0.2 E.U./dL (0.2-1.0)
[2019-08-12 09:50] VITALS: BP 121/77
== END 2019-08-12 09:47 | disposition home or self-care (01) ==
LOC: ER 22:41
DX: N39.0 Urinary tract infection, site not specified (principal); R51 Headache; I69.398 Other sequelae of cerebral infarction; R26.89 Other abnormalities of gait and mobility; I10 Essential (primary) hypertension; Z85.9 Personal history of malignant neoplasm, unspecified
CPT/HCPCS: 36415; 70450; 71045; 80053; 81003; 83605; 85025; 87040; 87086; 93005; 99285; J7030

== ENCOUNTER 2019-09-01 09:28 | Inpatient (IN) | payer MEDICARE, MEDICAID ==
[~2019-09-01] VITALS: Ht 165.1 cm; Wt 72.1 kg
[2019-09-01] MEDS ORDERED: SODIUM CHLORIDE 0.9% 1,000 ML IV ONE (10:19)
[2019-09-01] MEDS ORDERED: MORPHINE SULFATE 4 MG/ML CPJ (NOT FOR IM USE) IV STA (10:19)
[2019-09-01] MEDS ORDERED: ONDANSETRON HCL 4MG/2ML INJ IV STA (10:19)
[2019-09-01 10:49] LABS: BASOPHILS % 0.7 % (0.0-2.0); EOSINOPHILS % 1.3 % (0.0-5.0); HEMATOCRIT. 47.1 % (42.0-52.0); HEMOGLOBIN. 16.1 g/dL (14.0-18.0); LYMPHOCYTES % 13.9 % (20.0-50.0); MEAN CORPUSCULAR HEMOGLOBIN 28.3 pg (28.0-32.0); MEAN PLATELET VOLUME 9.2 fl (7.4-10.4); MONOCYTES % 7.7 % (2.0-8.0); NEUTROPHILS % 76.4 % (40.0-76.0); PLATELET 197 x1000/uL (130-400); RED BLOOD CELL COUNT 5.68 mill/uL (4.7-6.1); RED CELL DISTRIBUTION WIDTH 16.2 % (11.6-14.6)
[2019-09-01 10:56] LABS: CHLORIDE 108 mEq/L (98-107)
[2019-09-01 11:07] LABS: PARTIAL THROMBOPLASTIN TIME 30.9 sec (23.4-31.0); PROTHROMBIN TIME 10.8 sec (9.6-11.0)
[2019-09-01] MEDS ORDERED: ASPIRIN 325MG EC TABLET PO ONE (11:15)
[2019-09-01 11:42] LABS: CLARITY URINE CLOUDY (CLEAR); COLOR URINE YELLOW (YELLOW); KETONES URINE NEGATIVE (NEGATIVE); LEUKOCYTE ESTERASE URINE 2+ (NEGATIVE); NITRITE URINE POSITIVE (NEGATIVE); OCCULT BLOOD URINE 1+ (NEGATIVE); PROTEIN URINE NEGATIVE (NEGATIVE); SPECIFIC GRAVITY URINE 1.017 (1.005-1.030); UROBILINOGEN URINE 0.2 E.U./dL (0.2-1.0)
[2019-09-01] MEDS ORDERED: CEFTRIAXONE 1 G PREMIX 50 ML IV ONE (13:30)
[2019-09-01] MEDS ORDERED: ACETAMINOPHEN 325MG TABLET PO PRN (14:00)
[2019-09-01] MEDS ORDERED: ONDANSETRON HCL 4MG/2ML INJ IV PRN (14:00)
[2019-09-01] MEDS ORDERED: KETOROLAC 15MG/ML VIAL IV PRN (14:00)
[2019-09-01 17:47] VITALS: BP 109/78
[2019-09-01] MEDS: SODIUM CHLORIDE 0.45% 1,000 ML IV SCH (18:24)
[2019-09-01] MEDS: APIXABAN 5 MG TABLET PO SCH (18:24)
[2019-09-01 20:00] VITALS: BP 112/72
[2019-09-01] MEDS: AMPICILLIN SOD/SULBACTAM NA 3 G in SODIUM CHLORIDE 0.9% 100 ML IV SCH (21:03)
[2019-09-02] VITALS: BP 113/60
[2019-09-02] MEDS: AMPICILLIN SOD/SULBACTAM NA 3 G in SODIUM CHLORIDE 0.9% 100 ML IV SCH ×4 (01:07→22:05)
[2019-09-02 04:00] VITALS: BP 109/63
[2019-09-02] MEDS: SODIUM CHLORIDE 0.45% 1,000 ML IV SCH ×2 (05:24→13:51)
[2019-09-02 05:51] LABS: BASOPHILS % 0.6 % (0.0-2.0); EOSINOPHILS % 2.8 % (0.0-5.0); HEMATOCRIT. 41.9 % (42.0-52.0); HEMOGLOBIN. 14.5 g/dL (14.0-18.0); LYMPHOCYTES % 13.6 % (20.0-50.0); MEAN CORPUSCULAR HEMOGLOBIN 28.5 pg (28.0-32.0); MEAN CORPUSCULAR VOLUME 82.3 fL (80.0-94.0); MEAN PLATELET VOLUME 8.8 fl (7.4-10.4); MONOCYTES % 7.7 % (2.0-8.0); NEUTROPHILS % 75.3 % (40.0-76.0); PLATELET 165 x1000/uL (130-400); RED BLOOD CELL COUNT 5.09 mill/uL (4.7-6.1); RED CELL DISTRIBUTION WIDTH 15.9 % (11.6-14.6)
[2019-09-02 06:00] LABS: CHLORIDE 110 mEq/L (98-107)
[2019-09-02 08:00] VITALS: BP 113/68
[2019-09-02] MEDS: APIXABAN 5 MG TABLET PO SCH ×2 (08:07→16:05)
[2019-09-02 12:00] VITALS: BP 121/62
[2019-09-02 16:00] VITALS: BP 141/82
[2019-09-02 20:00] VITALS: BP 121/70
[2019-09-03] VITALS: BP 141/76
[2019-09-03] MEDS: AMPICILLIN SOD/SULBACTAM NA 3 G in SODIUM CHLORIDE 0.9% 100 ML IV SCH ×4 (03:20→22:05)
[2019-09-03 04:00] VITALS: BP 146/68
[2019-09-03] MEDS: SODIUM CHLORIDE 0.45% 1,000 ML IV SCH ×2 (05:35→18:31)
[2019-09-03 06:31] LABS: CHLORIDE 111 mEq/L (98-107)
[2019-09-03 06:44] LABS: BASOPHILS % 0.8 % (0.0-2.0); EOSINOPHILS % 2.6 % (0.0-5.0); HEMATOCRIT. 40.4 % (42.0-52.0); HEMOGLOBIN. 14.1 g/dL (14.0-18.0); LYMPHOCYTES % 11.2 % (20.0-50.0); MEAN CORPUSCULAR HEMOGLOBIN 28.7 pg (28.0-32.0); MEAN CORPUSCULAR VOLUME 82.7 fL (80.0-94.0); MEAN PLATELET VOLUME 9.1 fl (7.4-10.4); MONOCYTES % 9.1 % (2.0-8.0); NEUTROPHILS % 76.3 % (40.0-76.0); PLATELET 157 x1000/uL (130-400); RED BLOOD CELL COUNT 4.89 mill/uL (4.7-6.1); RED CELL DISTRIBUTION WIDTH 15.8 % (11.6-14.6)
[2019-09-03 08:00] VITALS: BP 130/76
[2019-09-03] MEDS: APIXABAN 5 MG TABLET PO SCH ×2 (08:07→18:30)
[2019-09-03 12:00] VITALS: BP 130/85
[2019-09-03] MEDS ORDERED: BACLOFEN 10MG TABLET PO SCH (12:45)
[2019-09-03 16:00] VITALS: BP 146/80
[2019-09-03 20:00] VITALS: BP 128/69
[2019-09-04] VITALS (7 sets, daily range): BP systolic 119–155; BP diastolic 66–80
[2019-09-04] MEDS: AMPICILLIN SOD/SULBACTAM NA 3 G in SODIUM CHLORIDE 0.9% 100 ML IV SCH ×2 (03:52→09:20)
[2019-09-04 05:59] LABS: BASOPHILS % 0.8 % (0.0-2.0); EOSINOPHILS % 2.4 % (0.0-5.0); HEMATOCRIT. 40.7 % (42.0-52.0); HEMOGLOBIN. 13.9 g/dL (14.0-18.0); LYMPHOCYTES % 14.7 % (20.0-50.0); MEAN CORPUSCULAR HEMOGLOBIN 28.4 pg (28.0-32.0); MEAN CORPUSCULAR VOLUME 82.9 fL (80.0-94.0); MEAN PLATELET VOLUME 8.9 fl (7.4-10.4); MONOCYTES % 8.8 % (2.0-8.0); NEUTROPHILS % 73.3 % (40.0-76.0); PLATELET 166 x1000/uL (130-400); RED BLOOD CELL COUNT 4.91 mill/uL (4.7-6.1); RED CELL DISTRIBUTION WIDTH 15.9 % (11.6-14.6)
[2019-09-04 06:33] LABS: CHLORIDE 111 mEq/L (98-107)
[2019-09-04] MEDS: SODIUM CHLORIDE 0.45% 1,000 ML IV SCH (09:20)
[2019-09-04] MEDS: APIXABAN 5 MG TABLET PO SCH ×2 (09:20→17:23)
[2019-09-04] MEDS ORDERED: SULF1TAB48 MT (12:37)
[2019-09-04] MEDS ORDERED: CEFTRIAXONE 1 G PREMIX 50 ML IV ONE (14:00)
[2019-09-05] VITALS: BP 115/51
[2019-09-05 04:00] VITALS: BP 120/53
[2019-09-05 08:00] VITALS: BP 135/75
[2019-09-05] MEDS: APIXABAN 5 MG TABLET PO SCH (08:33)
[2019-09-05] MEDS: SODIUM CHLORIDE 0.45% 1,000 ML IV SCH (11:29)
[2019-09-05 12:00] VITALS: BP 129/75
== END 2019-09-05 13:02 | disposition home or self-care (01) | DRG 699 ==
LOC: ER 09:28 → 6EST 12:30 → EDBEDREQ 13:16 → ENRESERV 15:28 → CANRESERV 15:28 → EDBEDREQTM 15:53 → EDBEDREQSVC 15:53 → ENRESERV 16:21
PROVIDERS: ADMIT Internal Medicine; ATTEND Internal Medicine
DX: T83.518A Infection and inflammatory reaction due to other urinary catheter, initial encounter (principal); N39.0 Urinary tract infection, site not specified; I10 Essential (primary) hypertension; E87.8 Other disorders of electrolyte and fluid balance, not elsewhere classified; Z60.2 Problems related to living alone; Y84.6 Urinary catheterization as the cause of abnormal reaction of the patient, or of later complication, without mention of misadventure at the time of the procedure; Z79.01 Long term (current) use of anticoagulants; Z86.711 Personal history of pulmonary embolism; Z86.73 Personal history of transient ischemic attack (TIA), and cerebral infarction without residual deficits; Z85.038 Personal history of other malignant neoplasm of large intestine; Y92.89 Other specified places as the place of occurrence of the external cause
CPT/HCPCS: 36415; 71045; 74176; 80048; 80053; 81003; 83880; 84484; 85025; 87077; 87186; 93005; 96374; 97116; 97162; 99285; J0295; J0696; J2270; J2405; J7030; J7050

== ENCOUNTER → 2019-09-30 | Emergency (ER) | payer MEDICARE, MEDICAID ==
[~2019-09-30] VITALS: Ht 165.1 cm; Wt 68.0 kg
[~2019-09-30] MED LIST changes: +KETOROLAC 60MG/2ML VIAL IM ONE; -LEVO500T2 PO; +SULF1TAB48 MT
[2019-09-30 09:04] VITALS: BP 161/93
== END | disposition home or self-care (01) ==
LOC: ER 08:59
DX: M25.569 Pain in unspecified knee (principal); M79.643 Pain in unspecified hand; M54.5 Low back pain
CPT/HCPCS: 96372; 99283; J1885

== ENCOUNTER 2019-10-01 18:16 | Emergency (ER) | payer MEDICARE, MEDICAID ==
[~2019-10-01] VITALS: Ht 165.1 cm; Wt 68.0 kg
[~2019-10-01 18:16] MED LIST changes: -KETOROLAC 60MG/2ML VIAL IM ONE
[2019-10-01 19:34] LABS: CLARITY URINE CLOUDY (CLEAR); COLOR URINE YELLOW (YELLOW); KETONES URINE NEGATIVE (NEGATIVE); LEUKOCYTE ESTERASE URINE 2+ (NEGATIVE); NITRITE URINE POSITIVE (NEGATIVE); OCCULT BLOOD URINE 3+ (NEGATIVE); PH URINE 5.5 (4.5-8.0); PROTEIN URINE 3+ (NEGATIVE); SPECIFIC GRAVITY URINE 1.024 (1.005-1.030)
[2019-10-01 19:46] LABS: BASOPHILS % 0.8 % (0.0-2.0); EOSINOPHILS % 1.9 % (0.0-5.0); HEMATOCRIT. 43.6 % (42.0-52.0); HEMOGLOBIN. 14.9 g/dL (14.0-18.0); LYMPHOCYTES % 14.7 % (20.0-50.0); MEAN CORPUSCULAR HEMOGLOBIN 28.3 pg (28.0-32.0); MEAN PLATELET VOLUME 8.8 fl (7.4-10.4); MONOCYTES % 8.9 % (2.0-8.0); NEUTROPHILS % 73.7 % (40.0-76.0); PLATELET 187 x1000/uL (130-400); RED BLOOD CELL COUNT 5.25 mill/uL (4.7-6.1); RED CELL DISTRIBUTION WIDTH 15.5 % (11.6-14.6)
[2019-10-01 19:50] LABS: CHLORIDE 116 mEq/L (98-107)
[2019-10-01 20:10] LABS: PARTIAL THROMBOPLASTIN TIME 31.6 sec (23.4-31.0); PROTHROMBIN TIME 11.2 sec (9.6-11.0)
[2019-10-01] MEDS ORDERED: LEVOFLOXACIN 250MG TABLET PO ONE (20:30)
[2019-10-01 21:41] VITALS: BP 152/75
== END 2019-10-01 21:44 | disposition home or self-care (01) ==
LOC: ER 18:16
DX: T83.011A Breakdown (mechanical) of indwelling urethral catheter, initial encounter (principal); Y73.8 Miscellaneous gastroenterology and urology devices associated with adverse incidents, not elsewhere classified; Y92.89 Other specified places as the place of occurrence of the external cause; I10 Essential (primary) hypertension; N39.0 Urinary tract infection, site not specified; Z86.73 Personal history of transient ischemic attack (TIA), and cerebral infarction without residual deficits; Z85.038 Personal history of other malignant neoplasm of large intestine; Z86.711 Personal history of pulmonary embolism; Z79.01 Long term (current) use of anticoagulants
CPT/HCPCS: 36415; 51702; 80053; 81003; 85025; 87077; 87186; 99284

== ENCOUNTER 2019-11-04 09:17 | Emergency (ER) | payer MEDICARE, MEDICAID ==
[~2019-11-04] VITALS: Ht 165.1 cm; Wt 68.0 kg
[2019-11-04] MEDS ORDERED: ACETAMINOPHEN WITH CODEINE 300/30MG TABLET PO ONE (09:45)
[2019-11-04 10:11] LABS: BASOPHILS % 0.6 % (0.0-2.0); EOSINOPHILS % 1.2 % (0.0-5.0); HEMOGLOBIN. 15.2 g/dL (14.0-18.0); MEAN CORPUSCULAR HEMOGLOBIN 29.3 pg (28.0-32.0); MEAN CORPUSCULAR VOLUME 84.9 fL (80.0-94.0); NEUTROPHILS % 79.2 % (40.0-76.0); PLATELET 173 x1000/uL (130-400); RED BLOOD CELL COUNT 5.18 mill/uL (4.7-6.1); RED CELL DISTRIBUTION WIDTH 15.6 % (11.6-14.6)
[2019-11-04 10:20] LABS: CHLORIDE 114 mEq/L (98-107)
[2019-11-04 11:37] LABS: CLARITY URINE TURBID (CLEAR); COLOR URINE YELLOW (YELLOW); KETONES URINE NEGATIVE (NEGATIVE); LEUKOCYTE ESTERASE URINE 3+ (NEGATIVE); NITRITE URINE POSITIVE (NEGATIVE); OCCULT BLOOD URINE 3+ (NEGATIVE); PH URINE 5.5 (4.5-8.0); PROTEIN URINE 1+ (NEGATIVE); SPECIFIC GRAVITY URINE 1.018 (1.005-1.030); UROBILINOGEN URINE 0.2 E.U./dL (0.2-1.0)
[2019-11-04 12:15] VITALS: BP 124/73
== END 2019-11-04 12:17 | disposition home or self-care (01) ==
LOC: ER 09:17
DX: S80.212A Abrasion, left knee, initial encounter (principal); W01.10XA Fall on same level from slipping, tripping and stumbling with subsequent striking against unspecified object, initial encounter; Y93.89 Activity, other specified; Y92.89 Other specified places as the place of occurrence of the external cause; N39.0 Urinary tract infection, site not specified; N40.1 Benign prostatic hyperplasia with lower urinary tract symptoms; I10 Essential (primary) hypertension; Z91.81 History of falling; Z43.6 Encounter for attention to other artificial openings of urinary tract; Z86.73 Personal history of transient ischemic attack (TIA), and cerebral infarction without residual deficits; Z79.899 Other long term (current) drug therapy
CPT/HCPCS: 36415; 73560; 80053; 81003; 85025; 87077; 87186; 99284

== ENCOUNTER 2019-12-01 09:37 | Emergency (ER) | payer MEDICARE, MEDICAID ==
[~2019-12-01] VITALS: Ht 165.1 cm; Wt 67.0 kg
[2019-12-01] MEDS ORDERED: ACETAMINOPHEN 325MG TABLET PO ONE (11:30)
[2019-12-01 19:25] VITALS: BP 148/77
== END 2019-12-01 19:35 | disposition home or self-care (01) ==
LOC: ER 09:37
DX: S00.93XA Contusion of unspecified part of head, initial encounter (principal); S30.0XXA Contusion of lower back and pelvis, initial encounter; S70.02XA Contusion of left hip, initial encounter; S70.01XA Contusion of right hip, initial encounter; S90.02XA Contusion of left ankle, initial encounter; I10 Essential (primary) hypertension; Z79.899 Other long term (current) drug therapy; W01.0XXA Fall on same level from slipping, tripping and stumbling without subsequent striking against object, initial encounter; Y93.89 Activity, other specified; Y92.89 Other specified places as the place of occurrence of the external cause; Y99.8 Other external cause status
CPT/HCPCS: 72110; 73522; 73590; 73610; 99285

== ENCOUNTER 2019-12-14 13:07 | Inpatient (IN) | payer MEDICARE, MEDICAID ==
[~2019-12-14] VITALS: Ht 165.1 cm; Wt 68.9 kg
[2019-12-14] MEDS ORDERED: TYLENOL (13:12)
[2019-12-14] MEDS ORDERED: SODIUM CHLORIDE 0.9% 1000ML BAG (SEPSIS BOLUS) IV ONE (17:30)
[2019-12-14] MEDS ORDERED: GENTAMICIN SULFATE 80 MG in SODIUM CHLORIDE 0.9% 100 ML IV STA (17:31)
[2019-12-14] MEDS ORDERED: CEFTRIAXONE 1 G PREMIX 50 ML IV ONE (17:45)
[2019-12-14 18:00] LABS: BASOPHILS % 0.5 % (0.0-2.0); EOSINOPHILS % 1.2 % (0.0-5.0); HEMATOCRIT. 46.4 % (42.0-52.0); HEMOGLOBIN. 16.2 g/dL (14.0-18.0); LYMPHOCYTES % 16.6 % (20.0-50.0); MEAN PLATELET VOLUME 8.8 fl (7.4-10.4); MONOCYTES % 6.9 % (2.0-8.0); NEUTROPHILS % 74.8 % (40.0-76.0); PLATELET 194 x1000/uL (130-400); RED CELL DISTRIBUTION WIDTH 15.1 % (11.6-14.6)
[2019-12-14] MEDS ORDERED: GENTAMICIN 80MG PREMIX 100 ML IV NR (18:00)
[2019-12-14 18:05] LABS: CHLORIDE 110 mEq/L (98-107)
[2019-12-14 18:07] LABS: CLARITY URINE TURBID (CLEAR); KETONES URINE TRACE (NEGATIVE); LEUKOCYTE ESTERASE URINE 3+ (NEGATIVE); NITRITE URINE POSITIVE (NEGATIVE); OCCULT BLOOD URINE 3+ (NEGATIVE); PH URINE 5.5 (4.5-8.0); PROTEIN URINE 2+ (NEGATIVE); SPECIFIC GRAVITY URINE 1.017 (1.005-1.030)
[2019-12-14 18:08] LABS: COLOR URINE DARK YELLOW (YELLOW)
[2019-12-15] MEDS ORDERED: MAGNESIUM/ALUMINUM HYDROXIDE/SIMETHICONE 30ML UDC PO PRN (08:15)
[2019-12-15] MEDS ORDERED: IPRATROPIUM/ALBUTEROL 0.5-3(2.5)MG/3ML NEB NEB PRN (08:15)
[2019-12-15] MEDS ORDERED: HYDROCODONE/ACETAMINOPHEN 5/325MG TABLET PO PRN (08:15)
[2019-12-15] MEDS ORDERED: DOCUSATE SODIUM 100MG CAPSULE PO PRN (08:15)
[2019-12-15] MEDS ORDERED: ACETAMINOPHEN 325MG TABLET PO PRN (08:15)
[2019-12-15] MEDS ORDERED: CLONIDINE 0.1MG TABLET PO PRN (08:15)
[2019-12-15] MEDS: ENOXAPARIN 40MG/0.4ML SYR SUBCUT SCH (09:05)
[2019-12-15 10:30] LABS: EOSINOPHILS % 1.2 % (0.0-5.0); HEMATOCRIT. 44.5 % (42.0-52.0); HEMOGLOBIN. 15.2 g/dL (14.0-18.0); LYMPHOCYTES % 15.9 % (20.0-50.0); MEAN CORPUSCULAR HEMOGLOBIN 29.6 pg (28.0-32.0); MEAN CORPUSCULAR VOLUME 86.9 fL (80.0-94.0); MEAN PLATELET VOLUME 8.8 fl (7.4-10.4); MONOCYTES % 5.6 % (2.0-8.0); NEUTROPHILS % 76.3 % (40.0-76.0); PLATELET 175 x1000/uL (130-400); RED BLOOD CELL COUNT 5.12 mill/uL (4.7-6.1); RED CELL DISTRIBUTION WIDTH 15.2 % (11.6-14.6)
[2019-12-15 10:36] LABS: CHLORIDE 113 mEq/L (98-107)
[2019-12-15 12:30] VITALS: BP 150/82
[2019-12-15 14:09] VITALS: BP 150/82
[2019-12-15 16:00] VITALS: BP 119/70
[2019-12-15] MEDS: CEFTRIAXONE 1 G PREMIX 50 ML IV SCH (18:01)
[2019-12-15 20:00] VITALS: BP 140/82
[2019-12-16] VITALS: BP 105/58
[2019-12-16 04:00] VITALS: BP 115/49
[2019-12-16 06:13] LABS: CHLORIDE 113 mEq/L (98-107)
[2019-12-16 06:19] LABS: BASOPHILS % 0.9 % (0.0-2.0); EOSINOPHILS % 2.3 % (0.0-5.0); HEMATOCRIT. 42.8 % (42.0-52.0); HEMOGLOBIN. 14.9 g/dL (14.0-18.0); LYMPHOCYTES % 20.3 % (20.0-50.0); MEAN CORPUSCULAR HEMOGLOBIN 29.8 pg (28.0-32.0); MEAN CORPUSCULAR VOLUME 85.9 fL (80.0-94.0); MEAN PLATELET VOLUME 9.3 fl (7.4-10.4); MONOCYTES % 8.9 % (2.0-8.0); NEUTROPHILS % 67.6 % (40.0-76.0); PLATELET 152 x1000/uL (130-400); RED BLOOD CELL COUNT 4.99 mill/uL (4.7-6.1); RED CELL DISTRIBUTION WIDTH 15.1 % (11.6-14.6)
[2019-12-16 06:21] LABS: PHOSPHORUS 3.6 mg/dL (2.5-4.9)
[2019-12-16 08:00] VITALS: BP 144/83
[2019-12-16] MEDS: ENOXAPARIN 40MG/0.4ML SYR SUBCUT SCH (09:52)
[2019-12-16] MEDS ORDERED: POTASSIUM CHLORIDE 20MEQ/PACKET PO NR (11:15)
[2019-12-16 12:00] VITALS: BP 118/63
[2019-12-16 16:00] VITALS: BP 141/67
[2019-12-16] MEDS: APIXABAN 5 MG TABLET PO SCH (17:00)
[2019-12-16] MEDS: CEFTRIAXONE 1 G PREMIX 50 ML IV SCH (18:00)
[2019-12-16 20:00] VITALS: BP 152/92
[2019-12-17] VITALS: BP 119/68
[2019-12-17 04:00] VITALS: BP 153/68
[2019-12-17 06:56] LABS: CHLORIDE 112 mEq/L (98-107)
[2019-12-17 07:53] LABS: BASOPHILS % 0.9 % (0.0-2.0); EOSINOPHILS % 1.4 % (0.0-5.0); HEMATOCRIT. 44.2 % (42.0-52.0); HEMOGLOBIN. 15.3 g/dL (14.0-18.0); LYMPHOCYTES % 16.3 % (20.0-50.0); MEAN CORPUSCULAR HEMOGLOBIN 29.7 pg (28.0-32.0); MEAN CORPUSCULAR VOLUME 85.8 fL (80.0-94.0); MEAN PLATELET VOLUME 9.7 fl (7.4-10.4); MONOCYTES % 8.3 % (2.0-8.0); NEUTROPHILS % 73.1 % (40.0-76.0); PLATELET 174 x1000/uL (130-400); RED BLOOD CELL COUNT 5.15 mill/uL (4.7-6.1)
[2019-12-17 08:00] VITALS: BP 141/72
[2019-12-17] MEDS: APIXABAN 5 MG TABLET PO SCH (08:05)
[2019-12-17 17:31] VITALS: BP 115/75
== END 2019-12-17 18:18 | disposition home or self-care (01) | DRG 699 ==
LOC: ER 13:07 → MICUSO 20:46 → 5WST 12-15 12:40
PROVIDERS: ADMIT Internal Medicine; ATTEND Internal Medicine
DX: T83.518A Infection and inflammatory reaction due to other urinary catheter, initial encounter (principal); E87.0 Hyperosmolality and hypernatremia; N39.0 Urinary tract infection, site not specified; K57.90 Diverticulosis of intestine, part unspecified, without perforation or abscess without bleeding; E87.8 Other disorders of electrolyte and fluid balance, not elsewhere classified; E87.6 Hypokalemia; B96.1 Klebsiella pneumoniae [K. pneumoniae] as the cause of diseases classified elsewhere; Y73.8 Miscellaneous gastroenterology and urology devices associated with adverse incidents, not elsewhere classified; Y92.89 Other specified places as the place of occurrence of the external cause; Z86.73 Personal history of transient ischemic attack (TIA), and cerebral infarction without residual deficits
CPT/HCPCS: 36415; 71045; 74176; 80048; 80053; 81003; 83605; 83735; 84100; 84145; 84484; 85025; 87077; 87186; 93005; 93970; 97162; 99285; J0696; J1580; J1650; J7030; J7050

== ENCOUNTER 2020-01-13 09:48 | Emergency (ER) | payer MEDICARE, MEDICAID ==
[~2020-01-13] VITALS: Ht 165.1 cm; Wt 67.0 kg
[~2020-01-13 09:48] MED LIST changes: -SULF1TAB48 MT; +TYLENOL
[2020-01-13] MEDS ORDERED: ACETAMINOPHEN 325MG TABLET PO ONE (10:30)
[2020-01-13 11:59] LABS: COLOR URINE YELLOW (YELLOW); KETONES URINE NEGATIVE (NEGATIVE); LEUKOCYTE ESTERASE URINE 3+ (NEGATIVE); NITRITE URINE POSITIVE (NEGATIVE); OCCULT BLOOD URINE 3+ (NEGATIVE); PH URINE 5.5 (4.5-8.0); PROTEIN URINE 2+ (NEGATIVE); SPECIFIC GRAVITY URINE 1.025 (1.005-1.030); UROBILINOGEN URINE 0.2 E.U./dL (0.2-1.0)
[2020-01-13 12:01] LABS: CLARITY URINE HAZY (CLEAR)
[2020-01-13 12:33] VITALS: BP 122/75
== END 2020-01-13 12:42 | disposition home or self-care (01) ==
LOC: ER 09:48
DX: M17.12 Unilateral primary osteoarthritis, left knee (principal); N39.0 Urinary tract infection, site not specified; R31.0 Gross hematuria
CPT/HCPCS: 73560; 81003; 87077; 87186; 93005; 99285

== ENCOUNTER 2020-01-15 06:18 | Emergency (ER) | payer MEDICARE, MEDICAID ==
[~2020-01-15] VITALS: Ht 165.1 cm; Wt 68.2 kg
[2020-01-15 09:52] LABS: CHLORIDE 115 mEq/L (98-107); HEMATOCRIT. 43.5 % (42.0-52.0); HEMOGLOBIN. 14.8 g/dL (14.0-18.0); MEAN CORPUSCULAR HEMOGLOBIN 29.6 pg (28.0-32.0); MEAN CORPUSCULAR VOLUME 86.9 fL (80.0-94.0); MEAN PLATELET VOLUME 9.7 fl (7.4-10.4); PLATELET 168 x1000/uL (130-400); RED BLOOD CELL COUNT 5.01 mill/uL (4.7-6.1); RED CELL DISTRIBUTION WIDTH 14.4 % (11.6-14.6)
[2020-01-15 09:54] LABS: CLARITY URINE CLOUDY (CLEAR); COLOR URINE YELLOW (YELLOW); KETONES URINE NEGATIVE (NEGATIVE); LEUKOCYTE ESTERASE URINE 2+ (NEGATIVE); NITRITE URINE POSITIVE (NEGATIVE); OCCULT BLOOD URINE 3+ (NEGATIVE); PROTEIN URINE 2+ (NEGATIVE); SPECIFIC GRAVITY URINE 1.026 (1.005-1.030); UROBILINOGEN URINE 0.2 E.U./dL (0.2-1.0)
[2020-01-15 10:03] LABS: PARTIAL THROMBOPLASTIN TIME 29.9 sec (23.4-31.0); PROTHROMBIN TIME 10.7 sec (9.6-11.0)
[2020-01-15 10:13] LABS: PLATELET ESTIMATE NORMAL
[2020-01-15 13:00] VITALS: BP 142/68
== END 2020-01-15 14:18 | disposition home or self-care (01) ==
LOC: ER 06:18
DX: N39.0 Urinary tract infection, site not specified (principal); I10 Essential (primary) hypertension; Z46.6 Encounter for fitting and adjustment of urinary device; Z86.73 Personal history of transient ischemic attack (TIA), and cerebral infarction without residual deficits
CPT/HCPCS: 36415; 80048; 81003; 85025; 87077; 87186; 99283; 99284

== ENCOUNTER 2020-01-29 10:52 | Emergency (ER) | payer MEDICARE, MEDICAID ==
[~2020-01-29] VITALS: Ht 172.7 cm; Wt 77.0 kg
[2020-01-29] MEDS ORDERED: SODIUM CHLORIDE 0.9% 500 ML IV ONE (12:47)
[2020-01-29 12:55] LABS: EOSINOPHILS % 2.1 % (0.0-5.0); HEMATOCRIT. 42.6 % (42.0-52.0); HEMOGLOBIN. 14.7 g/dL (14.0-18.0); MEAN CORPUSCULAR HEMOGLOBIN 30.1 pg (28.0-32.0); MEAN CORPUSCULAR VOLUME 87.4 fL (80.0-94.0); MEAN PLATELET VOLUME 9.1 fl (7.4-10.4); MONOCYTES % 7.6 % (2.0-8.0); NEUTROPHILS % 76.3 % (40.0-76.0); PLATELET 169 x1000/uL (130-400); RED BLOOD CELL COUNT 4.87 mill/uL (4.7-6.1); RED CELL DISTRIBUTION WIDTH 14.3 % (11.6-14.6)
[2020-01-29 13:00] LABS: CHLORIDE 114 mEq/L (98-107)
[2020-01-29 13:04] LABS: INR 1.1; PROTHROMBIN TIME 11.3 sec (9.6-11.0)
[2020-01-29 13:25] LABS: CLARITY URINE TURBID (CLEAR); COLOR URINE DK YELLOW (YELLOW); KETONES URINE NEGATIVE (NEGATIVE); LEUKOCYTE ESTERASE URINE 3+ (NEGATIVE); NITRITE URINE POSITIVE (NEGATIVE); OCCULT BLOOD URINE 3+ (NEGATIVE); PH URINE 5.5 (4.5-8.0); PROTEIN URINE 2+ (NEGATIVE); SPECIFIC GRAVITY URINE 1.021 (1.005-1.030); UROBILINOGEN URINE 0.2 E.U./dL (0.2-1.0)
[2020-01-29] MEDS ORDERED: SULFAMETHOXAZOLE/TRIMETHOPRIM 800/160MG TABLET PO ONE (14:15)
[2020-01-29 19:00] VITALS: BP 116/82
== END 2020-01-29 19:00 | disposition home or self-care (01) ==
LOC: ER 10:57
DX: T83.098A Other mechanical complication of other urinary catheter, initial encounter (principal); N39.0 Urinary tract infection, site not specified; I10 Essential (primary) hypertension; Z98.890 Other specified postprocedural states
CPT/HCPCS: 36415; 51702; 74176; 80053; 81003; 85025; 85610; 87077; 87086; 87186; 93005; 99285; J7030

== ENCOUNTER 2020-02-09 09:45 | Inpatient (IN) | payer MEDICARE, MEDICAID ==
[~2020-02-09] VITALS: Ht 165.1 cm; Wt 66.7 kg
[2020-02-09] MEDS ORDERED: SODIUM CHLORIDE 0.9% 1,000 ML IV ONE (10:31)
[2020-02-09] MEDS ORDERED: MORPHINE SULFATE 4 MG/ML CPJ (NOT FOR IM USE) IV STA (10:31)
[2020-02-09] MEDS ORDERED: ONDANSETRON HCL 4MG/2ML INJ IV STA (10:31)
[2020-02-09 11:26] LABS: BASOPHILS % 0.8 % (0.0-2.0); EOSINOPHILS % 1.4 % (0.0-5.0); HEMOGLOBIN. 15.3 g/dL (14.0-18.0); LYMPHOCYTES % 11.2 % (20.0-50.0); MEAN CORPUSCULAR HEMOGLOBIN 29.9 pg (28.0-32.0); MEAN PLATELET VOLUME 9.2 fl (7.4-10.4); MONOCYTES % 6.7 % (2.0-8.0); NEUTROPHILS % 79.9 % (40.0-76.0); PLATELET 176 x1000/uL (130-400); RED BLOOD CELL COUNT 5.11 mill/uL (4.7-6.1); RED CELL DISTRIBUTION WIDTH 14.5 % (11.6-14.6)
[2020-02-09 11:30] LABS: CHLORIDE 116 mEq/L (98-107)
[2020-02-09 11:34] LABS: INR 1.1; PROTHROMBIN TIME 11.8 sec (9.6-11.0)
[2020-02-09 11:41] LABS: CLARITY URINE CLOUDY (CLEAR); COLOR URINE DARK YELLOW (YELLOW); KETONES URINE NEGATIVE (NEGATIVE); LEUKOCYTE ESTERASE URINE 2+ (NEGATIVE); NITRITE URINE NEGATIVE (NEGATIVE); OCCULT BLOOD URINE 3+ (NEGATIVE); PH URINE 5.5 (4.5-8.0); PROTEIN URINE 3+ (NEGATIVE); SPECIFIC GRAVITY URINE 1.026 (1.005-1.030)
[2020-02-09] MEDS ORDERED: CEFTRIAXONE 1 G PREMIX 50 ML IV ONE (12:45)
[2020-02-09 20:30] VITALS: BP 126/82
[2020-02-09] MEDS ORDERED: PIPERACILLIN/TAZOBACTAM 3.375 G/VIAL IV SCH (22:00)
[2020-02-09] MEDS ORDERED: ACETAMINOPHEN 325MG TABLET PO PRN (22:00)
[2020-02-09] MEDS ORDERED: ONDANSETRON HCL 4MG/2ML INJ IV PRN (22:00)
[2020-02-09 22:30] VITALS: BP 157/116
[2020-02-09] MEDS: HYDROCODONE/ACETAMINOPHEN 5/325MG TABLET PO PRN (22:34)
[2020-02-10] VITALS: BP 126/72
[2020-02-10] MEDS: PIPERACILLIN/TAZOBACTAM 3.375 G in DEXT 5% WATER 100 ML IV SCH ×4 (00:46→23:36)
[2020-02-10 04:00] VITALS: BP 118/69
[2020-02-10 08:00] VITALS: BP 127/74
[2020-02-10] MEDS ORDERED: METOPROLOL TARTRATE 25MG TABLET PO SCH (09:00)
[2020-02-10] MEDS: APIXABAN 5 MG TABLET PO SCH ×2 (09:53→16:33)
[2020-02-10 12:00] VITALS: BP 128/65
[2020-02-10 16:00] VITALS: BP 129/65
[2020-02-10] MEDS ORDERED: KETOROLAC 15MG/ML VIAL IV PRN (17:00)
[2020-02-10] MEDS: HYDROCODONE/ACETAMINOPHEN 5/325MG TABLET PO PRN (21:13)
[2020-02-11] VITALS: BP 130/73
[2020-02-11 04:00] VITALS: BP 145/73
[2020-02-11 08:00] VITALS: BP 136/75
[2020-02-11] MEDS: PIPERACILLIN/TAZOBACTAM 3.375 G in DEXT 5% WATER 100 ML IV SCH ×2 (08:33→15:11)
[2020-02-11] MEDS: APIXABAN 5 MG TABLET PO SCH (08:33)
[2020-02-11 12:00] VITALS: BP 151/91
[2020-02-11] MEDS ORDERED: AMOX-424 MT (12:37)
[2020-02-11 13:28] VITALS: BP 151/91
[2020-02-11 16:00] VITALS: BP 146/82
== END 2020-02-11 16:25 | disposition home or self-care (01) | DRG 690 ==
LOC: ER 09:58 → 6EST 14:23 → EDBEDREQSVC 14:30 → EDBEDREQTM 14:30 → EDBEDREQ 14:30 → ENRESERV 19:57 → 6EST 22:15
PROVIDERS: ADMIT Internal Medicine; ATTEND Internal Medicine
DX: N10 Acute pyelonephritis (principal); E87.8 Other disorders of electrolyte and fluid balance, not elsewhere classified; I10 Essential (primary) hypertension; K57.30 Diverticulosis of large intestine without perforation or abscess without bleeding; Y93.01 Activity, walking, marching and hiking; W01.0XXA Fall on same level from slipping, tripping and stumbling without subsequent striking against object, initial encounter; K76.0 Fatty (change of) liver, not elsewhere classified; Y92.89 Other specified places as the place of occurrence of the external cause; Z86.711 Personal history of pulmonary embolism; Z86.73 Personal history of transient ischemic attack (TIA), and cerebral infarction without residual deficits; Y99.8 Other external cause status; Z79.01 Long term (current) use of anticoagulants; Z79.899 Other long term (current) drug therapy
CPT/HCPCS: 36415; 74176; 80053; 81003; 85025; 93005; 99285; J0696; J2543; J7030; J7060

== ENCOUNTER 2020-02-23 09:10 | Inpatient (IN) | payer MEDICARE, MEDICAID ==
[~2020-02-23] VITALS: Ht 165.1 cm; Wt 71.2 kg
[~2020-02-23 09:10] MED LIST changes: +AMOX-424 MT
[2020-02-23 10:26] LABS: BASOPHILS % 0.4 % (0.0-2.0); EOSINOPHILS % 2.1 % (0.0-5.0); HEMATOCRIT. 46.9 % (42.0-52.0); HEMOGLOBIN. 15.9 g/dL (14.0-18.0); MEAN CORPUSCULAR HEMOGLOBIN 29.8 pg (28.0-32.0); MEAN CORPUSCULAR VOLUME 87.7 fL (80.0-94.0); MEAN PLATELET VOLUME 9.2 fl (7.4-10.4); NEUTROPHILS % 80.5 % (40.0-76.0); PLATELET 194 x1000/uL (130-400); RED BLOOD CELL COUNT 5.35 mill/uL (4.7-6.1); RED CELL DISTRIBUTION WIDTH 14.2 % (11.6-14.6)
[2020-02-23 10:35] LABS: CHLORIDE 114 mEq/L (98-107)
[2020-02-23 11:17] LABS: CLARITY URINE TURBID (CLEAR); COLOR URINE YELLOW (YELLOW); SPECIFIC GRAVITY URINE 1.028 (1.005-1.030)
[2020-02-23 11:18] LABS: KETONES URINE TRACE (NEGATIVE); LEUKOCYTE ESTERASE URINE 3+ (NEGATIVE); NITRITE URINE POSITIVE (NEGATIVE); OCCULT BLOOD URINE 3+ (NEGATIVE); PROTEIN URINE 1+ (NEGATIVE); UROBILINOGEN URINE 0.2 E.U./dL (0.2-1.0)
[2020-02-23] MEDS ORDERED: ACETAMINOPHEN 500MG TABLET PO ONE (12:15)
[2020-02-23] MEDS ORDERED: CEFTRIAXONE SODIUM 250 MG/VIAL IM ONE (12:15)
[2020-02-23 17:45] VITALS: BP 156/86
[2020-02-23] MEDS ORDERED: ACETAMINOPHEN 650MG/20.3ML UDC PO PRN (18:30)
[2020-02-23] MEDS ORDERED: ONDANSETRON HCL 4MG/2ML INJ IV PRN (18:30)
[2020-02-23 20:00] VITALS: BP 145/82
[2020-02-23] MEDS ORDERED: PIPERACILLIN/TAZOBACTAM 3.375 G/VIAL IV SCH (22:00)
[2020-02-23] MEDS: PIPERACILLIN/TAZOBACTAM 3.375 G in DEXT 5% WATER 100 ML IV SCH (22:54)
[2020-02-23] MEDS: TAMSULOSIN HCL 0.4MG SR CAPSULE PO SCH (22:57)
[2020-02-24] VITALS (7 sets, daily range): BP systolic 112–136; BP diastolic 68–80
[2020-02-24] MEDS: PIPERACILLIN/TAZOBACTAM 3.375 G in DEXT 5% WATER 100 ML IV SCH (05:12)
[2020-02-24] MEDS: TAMSULOSIN HCL 0.4MG SR CAPSULE PO SCH (09:10)
[2020-02-24] MEDS: AMLODIPINE 10MG TABLET PO SCH (09:11)
[2020-02-24] MEDS: ENOXAPARIN 40MG/0.4ML SYR SUBCUT SCH (09:11)
[2020-02-24] MEDS: CEFTRIAXONE 1,000 MG in DEXTROSE 5% WATER 50 ML IV SCH (11:29)
[2020-02-25 04:52] VITALS: BP 128/69
[2020-02-25 08:00] VITALS: BP 125/70
[2020-02-25] MEDS: CEFTRIAXONE 1,000 MG in DEXTROSE 5% WATER 50 ML IV SCH (09:34)
[2020-02-25] MEDS: AMLODIPINE 10MG TABLET PO SCH (09:35)
[2020-02-25] MEDS: ENOXAPARIN 40MG/0.4ML SYR SUBCUT SCH (09:35)
[2020-02-25] MEDS: TAMSULOSIN HCL 0.4MG SR CAPSULE PO SCH (09:36)
[2020-02-25 12:00] VITALS: BP 130/75
[2020-02-25] MEDS ORDERED: CEPH250C2 MT (15:45)
[2020-02-25 16:00] VITALS: BP 137/82
[2020-02-25 16:10] VITALS: BP_SYST 137; BP_SYST 142; BP_DIAS 82
[2020-02-25 20:00] VITALS: BP 152/83
[2020-02-26] VITALS: BP 130/73
[2020-02-26 04:00] VITALS: BP 130/83
[2020-02-26 08:00] VITALS: BP 142/82
[2020-02-26] MEDS: TAMSULOSIN HCL 0.4MG SR CAPSULE PO SCH (08:58)
[2020-02-26] MEDS: ENOXAPARIN 40MG/0.4ML SYR SUBCUT SCH (08:58)
[2020-02-26] MEDS: AMLODIPINE 10MG TABLET PO SCH (08:58)
== END 2020-02-26 10:55 | disposition home or self-care (01) | DRG 699 ==
LOC: ER 09:10 → 6EST 14:33 → ENRESERV 16:55
PROVIDERS: ADMIT Internal Medicine; ATTEND Internal Medicine
PROC: 0T2BX0Z Change Drainage Device in Bladder, External Approach (ICD-10-PCS; principal; 2020-02-23)
DX: T83.518A Infection and inflammatory reaction due to other urinary catheter, initial encounter (principal); N12 Tubulo-interstitial nephritis, not specified as acute or chronic; N40.0 Benign prostatic hyperplasia without lower urinary tract symptoms; I10 Essential (primary) hypertension; E87.8 Other disorders of electrolyte and fluid balance, not elsewhere classified; B96.1 Klebsiella pneumoniae [K. pneumoniae] as the cause of diseases classified elsewhere; M54.5 Low back pain; G89.29 Other chronic pain; Z86.73 Personal history of transient ischemic attack (TIA), and cerebral infarction without residual deficits; Z86.711 Personal history of pulmonary embolism; Z46.6 Encounter for fitting and adjustment of urinary device; Z88.1 Allergy status to other antibiotic agents; Z88.8 Allergy status to other drugs, medicaments and biological substances; Z79.899 Other long term (current) drug therapy
CPT/HCPCS: 36415; 80053; 81003; 85025; 87077; 87186; 99285; J0696; J1650; J2405; J2543; J7060

== ENCOUNTER 2020-05-08 14:29 | Emergency (ER) | payer MEDICARE, MEDICAID ==
[~2020-05-08] VITALS: Ht 165.1 cm; Wt 68.0 kg
[~2020-05-08 14:29] MED LIST changes: -AMOX-424 MT; +FOSF3PAC MT; -TYLENOL
[2020-05-08 22:20] VITALS: BP 169/85
== END 2020-05-08 22:22 | disposition home or self-care (01) ==
LOC: ER 14:29
DX: R10.30 Lower abdominal pain, unspecified (principal); R33.9 Retention of urine, unspecified; Z86.73 Personal history of transient ischemic attack (TIA), and cerebral infarction without residual deficits; J96.00 Acute respiratory failure, unspecified whether with hypoxia or hypercapnia; N17.9 Acute kidney failure, unspecified; I10 Essential (primary) hypertension
CPT/HCPCS: 99281

== ENCOUNTER 2020-05-23 09:21 | Emergency (ER) | payer MEDICARE, MEDICAID ==
[~2020-05-23] VITALS: Ht 165.1 cm; Wt 70.0 kg
[2020-05-23 09:22] VITALS: BP 131/77
[2020-05-23 10:19] LABS: CLARITY URINE CLOUDY (CLEAR); COLOR URINE YELLOW (YELLOW); KETONES URINE NEGATIVE (NEGATIVE); LEUKOCYTE ESTERASE URINE 3+ (NEGATIVE); NITRITE URINE NEGATIVE (NEGATIVE); OCCULT BLOOD URINE 2+ (NEGATIVE); PROTEIN URINE TRACE (NEGATIVE); SPECIFIC GRAVITY URINE 1.019 (1.005-1.030); UROBILINOGEN URINE 0.2 E.U./dL (0.2-1.0)
== END 2020-05-23 10:51 | disposition home or self-care (01) ==
LOC: ER 09:21
DX: Z43.6 Encounter for attention to other artificial openings of urinary tract (principal); N39.0 Urinary tract infection, site not specified; I10 Essential (primary) hypertension; Z86.73 Personal history of transient ischemic attack (TIA), and cerebral infarction without residual deficits
CPT/HCPCS: 51702; 81003; 87077; 87186; 99284

== ENCOUNTER 2020-06-07 12:41 | Emergency (ER) | payer MEDICARE, MEDICAID ==
[~2020-06-07] VITALS: Ht 157.5 cm; Wt 69.0 kg
[2020-06-07 12:47] VITALS: BP 147/78
[2020-06-07 15:39] LABS: CLARITY URINE CLOUDY (CLEAR); COLOR URINE YELLOW (YELLOW); KETONES URINE NEGATIVE (NEGATIVE); LEUKOCYTE ESTERASE URINE 3+ (NEGATIVE); NITRITE URINE NEGATIVE (NEGATIVE); OCCULT BLOOD URINE TRACE (NEGATIVE); PH URINE 5.5 (4.5-8.0); PROTEIN URINE 1+ (NEGATIVE); SPECIFIC GRAVITY URINE 1.022 (1.005-1.030)
== END 2020-06-07 17:37 | disposition home or self-care (01) ==
LOC: ER 12:41
DX: N39.0 Urinary tract infection, site not specified (principal); I10 Essential (primary) hypertension; Z46.6 Encounter for fitting and adjustment of urinary device; Z86.73 Personal history of transient ischemic attack (TIA), and cerebral infarction without residual deficits
CPT/HCPCS: 51702; 81003; 87077; 87186; 99284

== ENCOUNTER 2020-06-13 01:54 | Emergency (ER) | payer MEDICARE, MEDICAID ==
[~2020-06-13] VITALS: Ht 165.1 cm; Wt 69.0 kg
[2020-06-13 04:47] VITALS: BP 120/6
== END 2020-06-13 05:36 | disposition home or self-care (01) ==
LOC: ER 01:54
DX: T83.018A Breakdown (mechanical) of other urinary catheter, initial encounter (principal); R33.9 Retention of urine, unspecified; K92.1 Melena; Y73.8 Miscellaneous gastroenterology and urology devices associated with adverse incidents, not elsewhere classified; Y92.89 Other specified places as the place of occurrence of the external cause; I10 Essential (primary) hypertension; Z86.73 Personal history of transient ischemic attack (TIA), and cerebral infarction without residual deficits
CPT/HCPCS: 51702; 99284

== ENCOUNTER 2020-06-18 12:51 | Emergency (ER) | payer MEDICARE, MEDICAID ==
[~2020-06-18] VITALS: Ht 157.5 cm; Wt 137.0 kg
[2020-06-18 15:30] VITALS: BP 145/90
== END 2020-06-18 15:46 | disposition home or self-care (01) ==
LOC: ER 12:51
DX: T83.038A Leakage of other urinary catheter, initial encounter (principal); Y73.1 Therapeutic (nonsurgical) and rehabilitative gastroenterology and urology devices associated with adverse incidents; Y92.89 Other specified places as the place of occurrence of the external cause; R33.8 Other retention of urine; R03.0 Elevated blood-pressure reading, without diagnosis of hypertension
CPT/HCPCS: 51702; 99284

== ENCOUNTER 2020-07-01 10:22 | Emergency (ER) | payer MEDICARE, MEDICAID ==
[~2020-07-01] VITALS: Ht 165.1 cm; Wt 64.0 kg
[2020-07-01 12:22] VITALS: BP 150/78
== END 2020-07-01 12:23 | disposition home or self-care (01) ==
LOC: ER 10:22
DX: T83.018A Breakdown (mechanical) of other urinary catheter, initial encounter (principal); I10 Essential (primary) hypertension; Z86.73 Personal history of transient ischemic attack (TIA), and cerebral infarction without residual deficits
CPT/HCPCS: 51702; 99284; A4315

== ENCOUNTER 2020-07-05 20:34 | Emergency (ER) | payer MEDICARE, MEDICAID ==
[~2020-07-05] VITALS: Ht 165.1 cm; Wt 70.0 kg
[2020-07-06 00:43] LABS: CLARITY URINE TURBID (CLEAR); COLOR URINE YELLOW (YELLOW); KETONES URINE TRACE (NEGATIVE); LEUKOCYTE ESTERASE URINE 3+ (NEGATIVE); NITRITE URINE POSITIVE (NEGATIVE); OCCULT BLOOD URINE 3+ (NEGATIVE); PROTEIN URINE 3+ (NEGATIVE); SPECIFIC GRAVITY URINE 1.029 (1.005-1.030)
[2020-07-06 06:41] VITALS: BP 145/80
== END 2020-07-06 06:45 | disposition home or self-care (01) ==
LOC: ER 20:34
DX: T83.021A Displacement of indwelling urethral catheter, initial encounter (principal); N39.0 Urinary tract infection, site not specified; I10 Essential (primary) hypertension; Y73.8 Miscellaneous gastroenterology and urology devices associated with adverse incidents, not elsewhere classified; Y92.018 Other place in single-family (private) house as the place of occurrence of the external cause; Z86.73 Personal history of transient ischemic attack (TIA), and cerebral infarction without residual deficits
CPT/HCPCS: 51702; 81003; 87077; 87186; 93005; 99285; A4315

== ENCOUNTER 2020-07-07 17:18 | Emergency (ER) | payer MEDICARE, MEDICAID ==
[~2020-07-07] VITALS: Ht 165.1 cm; Wt 68.0 kg
[2020-07-07 19:15] VITALS: BP 141/84
== END 2020-07-07 19:15 | disposition home or self-care (01) ==
LOC: ER 17:18
DX: T83.018A Breakdown (mechanical) of other urinary catheter, initial encounter (principal); I10 Essential (primary) hypertension; Z86.73 Personal history of transient ischemic attack (TIA), and cerebral infarction without residual deficits
CPT/HCPCS: 99281

== ENCOUNTER 2020-07-07 19:31 | Emergency (ER) | payer MEDICARE, MEDICAID ==
[~2020-07-07] VITALS: Ht 165.1 cm; Wt 67.0 kg
[2020-07-07 19:35] VITALS: BP 158/85
== END 2020-07-07 20:42 | disposition home or self-care (01) ==
LOC: ER 19:31
DX: T83.091A Other mechanical complication of indwelling urethral catheter, initial encounter (principal); I49.9 Cardiac arrhythmia, unspecified; I10 Essential (primary) hypertension; Z86.73 Personal history of transient ischemic attack (TIA), and cerebral infarction without residual deficits
CPT/HCPCS: 93005; 99281; 99283

== ENCOUNTER 2020-07-14 16:48 | Inpatient (IN) | payer MEDICAID ==
[~2020-07-14] VITALS: Ht 165.1 cm; Wt 66.7 kg
[2020-07-14] MEDS ORDERED: LORAZEPAM 2MG/ML CPJ IV STA (19:05)
[2020-07-14] MEDS ORDERED: HALOPERIDOL LACTATE 5MG/ML VIAL IM STA (19:05)
[2020-07-14] MEDS ORDERED: CEFTRIAXONE 1 G PREMIX 50 ML IV ONE (19:15)
[2020-07-14] MEDS ORDERED: TETANUS, DIPHTHERIA, PERTUSSIS VAC/PF 0.5ML (>7YR OLD) IM ONE (19:15)
[2020-07-14] MEDS ORDERED: SODIUM CHLORIDE 0.9% 1,000 ML IV ONE (19:30)
[2020-07-14 20:30] LABS: CHLORIDE 112 mEq/L (98-107)
[2020-07-14 20:37] LABS: ETHANOL BLOOD < 10 mg/dL
[2020-07-14 21:59] LABS: BASOPHILS % 0.5 % (0.0-2.0); EOSINOPHILS % 1.8 % (0.0-5.0); HEMATOCRIT. 44.3 % (42.0-52.0); HEMOGLOBIN. 14.9 g/dL (14.0-18.0); MEAN CORPUSCULAR HEMOGLOBIN 28.7 pg (28.0-32.0); MEAN CORPUSCULAR VOLUME 85.4 fL (80.0-94.0); MEAN PLATELET VOLUME 8.8 fl (7.4-10.4); MONOCYTES % 7.8 % (2.0-8.0); NEUTROPHILS % 74.9 % (40.0-76.0); PLATELET 165 x1000/uL (130-400); RED BLOOD CELL COUNT 5.18 mill/uL (4.7-6.1); RED CELL DISTRIBUTION WIDTH 14.2 % (11.6-14.6)
[2020-07-14 22:07] LABS: CHLORIDE 114 mEq/L (98-107)
[2020-07-14 22:52] LABS: CLARITY URINE TURBID (CLEAR); COLOR URINE YELLOW (YELLOW); KETONES URINE NEGATIVE (NEGATIVE); LEUKOCYTE ESTERASE URINE 3+ (NEGATIVE); NITRITE URINE POSITIVE (NEGATIVE); OCCULT BLOOD URINE 1+ (NEGATIVE); PH URINE 8.5 (4.5-8.0); PROTEIN URINE 3+ (NEGATIVE); SPECIFIC GRAVITY URINE 1.021 (1.005-1.030); UROBILINOGEN URINE 0.2 E.U./dL (0.2-1.0)
[2020-07-14] MEDS ORDERED: CIPR-213 MT (22:53)
[2020-07-14 23:01] LABS: *AMPHETAMINES SCREEN URINE NEGATIVE (NEGATIVE); *BARBITURATES SCREEN URINE NEGATIVE (NEGATIVE); *BENZODIAZEPINES SCREEN URINE NEGATIVE (NEGATIVE); *COCAINE SCREEN URINE NEGATIVE (NEGATIVE)
[2020-07-14 23:02] LABS: CANNABINOID URINE SCREEN NEGATIVE (NEGATIVE); METHADONE URINE SCREEN NEGATIVE (NEGATIVE); OPIATES URINE SCREEN NEGATIVE (NEGATIVE); PHENCYCLIDINE URINE SCREEN NEGATIVE (NEGATIVE)
[2020-07-15] MEDS ORDERED: CEFTRIAXONE 1 G PREMIX 50 ML IV ONE (11:30)
[2020-07-15] MEDS ORDERED: HYDROCODONE/ACETAMINOPHEN 5/325MG TABLET PO PRN (14:30)
[2020-07-15] MEDS ORDERED: LORAZEPAM 0.5MG TABLET PO PRN (14:30)
[2020-07-15] MEDS ORDERED: IPRATROPIUM/ALBUTEROL 0.5-3(2.5)MG/3ML NEB HHN PRN (14:30)
[2020-07-15] MEDS ORDERED: ACETAMINOPHEN 325MG TABLET PO PRN ×2 (14:30)
[2020-07-15] MEDS ORDERED: CLONIDINE 0.1MG TABLET PO PRN (14:30)
[2020-07-15] MEDS ORDERED: ONDANSETRON HCL 4MG/2ML INJ IV PRN (14:30)
[2020-07-15] MEDS: MEROPENEM 1000MG in NORMAL SALINE 100ML IV SCH (18:00)
[2020-07-15] MEDS ORDERED: MEROPENEM 1,000 MG in SODIUM CHLORIDE 0.9% 100 ML IV SCH (18:00)
[2020-07-15] MEDS: APIXABAN 5 MG TABLET PO SCH (18:00)
[2020-07-15 18:29] VITALS: BP 142/77
[2020-07-15 20:00] VITALS: BP 146/78
[2020-07-16] VITALS: BP 123/61
[2020-07-16] MEDS: MEROPENEM 1000MG in NORMAL SALINE 100ML IV SCH ×3 (02:00→18:27)
[2020-07-16 04:00] VITALS: BP 123/66
[2020-07-16 07:00] LABS: BASOPHILS % 0.8 % (0.0-2.0); EOSINOPHILS % 2.9 % (0.0-5.0); HEMOGLOBIN. 14.9 g/dL (14.0-18.0); LYMPHOCYTES % 13.2 % (20.0-50.0); MEAN CORPUSCULAR HEMOGLOBIN 29.6 pg (28.0-32.0); MEAN CORPUSCULAR VOLUME 85.6 fL (80.0-94.0); MEAN PLATELET VOLUME 9.7 fl (7.4-10.4); NEUTROPHILS % 75.1 % (40.0-76.0); PLATELET 151 x1000/uL (130-400); RED BLOOD CELL COUNT 5.03 mill/uL (4.7-6.1); RED CELL DISTRIBUTION WIDTH 14.4 % (11.6-14.6)
[2020-07-16 07:01] LABS: CHLORIDE 111 mEq/L (98-107)
[2020-07-16 07:07] LABS: LDL CHOLESTEROL 67 mg/dL (5-100)
[2020-07-16 07:10] LABS: HDL CHOLESTEROL 33 mg/dL (40-59)
[2020-07-16 08:00] VITALS: BP 142/79
[2020-07-16] MEDS: APIXABAN 5 MG TABLET PO SCH ×2 (09:30→18:27)
[2020-07-16] MEDS ORDERED: POTASSIUM CHLORIDE 20MEQ/PACKET PO NR (10:00)
[2020-07-16] MEDS ORDERED: CEFTRIAXONE 1 G PREMIX 50 ML IV SCH (11:00)
[2020-07-16 12:00] VITALS: BP 115/69
[2020-07-16 16:00] VITALS: BP 129/66
[2020-07-16 20:00] VITALS: BP 158/77
[2020-07-17] VITALS: BP 139/73
[2020-07-17] MEDS: MEROPENEM 1000MG in NORMAL SALINE 100ML IV SCH ×3 (01:24→18:02)
[2020-07-17 04:00] VITALS: BP 135/72
[2020-07-17 06:27] LABS: CHLORIDE 111 mEq/L (98-107)
[2020-07-17 06:47] LABS: BASOPHILS % 0.6 % (0.0-2.0); EOSINOPHILS % 1.8 % (0.0-5.0); HEMATOCRIT. 45.6 % (42.0-52.0); HEMOGLOBIN. 15.9 g/dL (14.0-18.0); LYMPHOCYTES % 11.6 % (20.0-50.0); MEAN CORPUSCULAR HEMOGLOBIN 29.9 pg (28.0-32.0); MEAN CORPUSCULAR VOLUME 85.9 fL (80.0-94.0); MEAN PLATELET VOLUME 9.3 fl (7.4-10.4); MONOCYTES % 7.9 % (2.0-8.0); NEUTROPHILS % 78.1 % (40.0-76.0); PLATELET 160 x1000/uL (130-400); RED BLOOD CELL COUNT 5.31 mill/uL (4.7-6.1); RED CELL DISTRIBUTION WIDTH 13.9 % (11.6-14.6)
[2020-07-17 08:00] VITALS: BP 138/74
[2020-07-17] MEDS: APIXABAN 5 MG TABLET PO SCH ×2 (09:24→18:02)
[2020-07-17 12:00] VITALS: BP 152/76
[2020-07-17 16:00] VITALS: BP 137/77
[2020-07-18] VITALS: BP 122/80
[2020-07-18] MEDS: MEROPENEM 1000MG in NORMAL SALINE 100ML IV SCH ×2 (02:27→09:07)
[2020-07-18 04:00] VITALS: BP 146/83
[2020-07-18 06:33] LABS: BASOPHILS % 0.2 % (0.0-2.0); EOSINOPHILS % 2.2 % (0.0-5.0); HEMATOCRIT. 48.6 % (42.0-52.0); HEMOGLOBIN. 16.8 g/dL (14.0-18.0); LYMPHOCYTES % 14.7 % (20.0-50.0); MEAN CORPUSCULAR HEMOGLOBIN 29.6 pg (28.0-32.0); MEAN CORPUSCULAR VOLUME 85.5 fL (80.0-94.0); MEAN PLATELET VOLUME 9.4 fl (7.4-10.4); MONOCYTES % 7.7 % (2.0-8.0); NEUTROPHILS % 75.2 % (40.0-76.0); PLATELET 176 x1000/uL (130-400); RED BLOOD CELL COUNT 5.68 mill/uL (4.7-6.1); RED CELL DISTRIBUTION WIDTH 14.4 % (11.6-14.6)
[2020-07-18 07:13] LABS: CHLORIDE 114 mEq/L (98-107)
[2020-07-18 08:00] VITALS: BP 154/76
[2020-07-18] MEDS: APIXABAN 5 MG TABLET PO SCH ×2 (09:07→16:15)
[2020-07-18 12:00] VITALS: BP 121/73
[2020-07-18] MEDS ORDERED: CEFTRIAXONE 1 G PREMIX 50 ML IV SCH (12:30)
[2020-07-18 16:00] VITALS: BP 134/81
[2020-07-18] MEDS: CEFTRIAXONE 1,000 MG in DEXTROSE 5% WATER 50 ML IV SCH (16:15)
[2020-07-18 20:00] VITALS: BP 126/70
[2020-07-19] VITALS: BP 125/77
[2020-07-19 04:00] VITALS: BP 143/60
[2020-07-19 06:29] LABS: BASOPHILS % 0.5 % (0.0-2.0); EOSINOPHILS % 2.2 % (0.0-5.0); HEMOGLOBIN. 15.7 g/dL (14.0-18.0); LYMPHOCYTES % 15.4 % (20.0-50.0); MEAN CORPUSCULAR HEMOGLOBIN 29.5 pg (28.0-32.0); MEAN CORPUSCULAR VOLUME 86.4 fL (80.0-94.0); MEAN PLATELET VOLUME 9.4 fl (7.4-10.4); MONOCYTES % 8.6 % (2.0-8.0); NEUTROPHILS % 73.3 % (40.0-76.0); PLATELET 169 x1000/uL (130-400); RED BLOOD CELL COUNT 5.33 mill/uL (4.7-6.1); RED CELL DISTRIBUTION WIDTH 14.3 % (11.6-14.6)
[2020-07-19 06:52] LABS: CHLORIDE 113 mEq/L (98-107)
[2020-07-19 08:00] VITALS: BP 130/84
[2020-07-19] MEDS: APIXABAN 5 MG TABLET PO SCH (08:25)
[2020-07-19 12:00] VITALS: BP 125/84
[2020-07-19] MEDS ORDERED: TAMS-11 MT (13:33)
[2020-07-19] MEDS ORDERED: TAMSULOSIN HCL 0.4MG SR CAPSULE PO SCH (13:45)
[2020-07-19] MEDS ORDERED: SULF1TAB48 MT (13:55)
[2020-07-19 14:39] VITALS: BP 125/84
[2020-07-19] MEDS: CEFTRIAXONE 1,000 MG in DEXTROSE 5% WATER 50 ML IV SCH (14:59)
[2020-07-19 16:00] VITALS: BP 144/87
== END 2020-07-19 18:14 | disposition home or self-care (01) | DRG 466 ==
LOC: ER 16:48 → 6EST 07-15 11:27 → ENRESERV 07-15 14:42
PROVIDERS: ADMIT Internal Medicine; ATTEND Internal Medicine
DX: T83.518A Infection and inflammatory reaction due to other urinary catheter, initial encounter (principal); I26.99 Other pulmonary embolism without acute cor pulmonale; E87.6 Hypokalemia; I16.0 Hypertensive urgency; R80.9 Proteinuria, unspecified; N40.0 Benign prostatic hyperplasia without lower urinary tract symptoms; Y65.8 Other specified misadventures during surgical and medical care; Z86.73 Personal history of transient ischemic attack (TIA), and cerebral infarction without residual deficits; Z87.440 Personal history of urinary (tract) infections; Z79.01 Long term (current) use of anticoagulants; Y92.89 Other specified places as the place of occurrence of the external cause; Z86.711 Personal history of pulmonary embolism
CPT/HCPCS: 36415; 80048; 80053; 80061; 80305; 80320; 81003; 83605; 85025; 87077; 87186; 93005; 99285; J0696; J2185; J7030; J7040; J7050; J7060; A4315; G0480

== ENCOUNTER 2020-09-05 16:10 | Emergency (ER) | payer BC, MEDICAID ==
[~2020-09-05] VITALS: Ht 167.6 cm; Wt 67.0 kg
[~2020-09-05 16:10] MED LIST changes: -FOSF3PAC MT; +SULF1TAB48 MT; +TAMS-11 MT
[2020-09-05 16:13] VITALS: BP 135/81
[2020-09-05] MEDS ORDERED: ACETAMINOPHEN 325MG TABLET PO ONE (19:30)
[2020-09-05] MEDS ORDERED: TOPUD MT (20:53)
== END 2020-09-05 21:57 | disposition home or self-care (01) ==
LOC: ER 16:10
DX: S09.8XXA Other specified injuries of head, initial encounter (principal); M79.644 Pain in right finger(s); M54.5 Low back pain; W01.10XA Fall on same level from slipping, tripping and stumbling with subsequent striking against unspecified object, initial encounter; Y93.89 Activity, other specified; Y92.89 Other specified places as the place of occurrence of the external cause; M85.841 Other specified disorders of bone density and structure, right hand; G31.89 Other specified degenerative diseases of nervous system; Z86.73 Personal history of transient ischemic attack (TIA), and cerebral infarction without residual deficits; Z79.01 Long term (current) use of anticoagulants; Z79.899 Other long term (current) drug therapy
CPT/HCPCS: 72100; 73130; 99284

== ENCOUNTER 2020-10-25 11:17 | Emergency (ER) | payer MEDICARE, MEDICAID ==
[~2020-10-25] VITALS: Ht 167.6 cm; Wt 67.0 kg
[~2020-10-25 11:17] MED LIST changes: +TOPUD MT
[2020-10-25 12:21] LABS: BASOPHILS % 1.4 % (0.0-2.0); EOSINOPHILS % 1.5 % (0.0-5.0); HEMOGLOBIN. 15.5 g/dL (14.0-18.0); LYMPHOCYTES % 11.1 % (20.0-50.0); MEAN CORPUSCULAR HEMOGLOBIN 30.6 pg (28.0-32.0); MEAN PLATELET VOLUME 9.2 fl (7.4-10.4); PLATELET 164 x1000/uL (130-400); RED BLOOD CELL COUNT 5.06 mill/uL (4.7-6.1); RED CELL DISTRIBUTION WIDTH 14.2 % (11.6-14.6)
[2020-10-25 12:24] LABS: CHLORIDE 112 mEq/L (98-107)
[2020-10-25 13:25] LABS: CLARITY URINE CLEAR (CLEAR); COLOR URINE YELLOW (YELLOW); KETONES URINE NEGATIVE (NEGATIVE); LEUKOCYTE ESTERASE URINE NEGATIVE (NEGATIVE); NITRITE URINE NEGATIVE (NEGATIVE); OCCULT BLOOD URINE NEGATIVE (NEGATIVE); PH URINE 5.5 (4.5-8.0); PROTEIN URINE NEGATIVE (NEGATIVE); SPECIFIC GRAVITY URINE 1.022 (1.005-1.030); UROBILINOGEN URINE 0.2 E.U./dL (0.2-1.0)
[2020-10-25 15:15] VITALS: BP 137/78
== END 2020-10-25 15:47 | disposition home or self-care (01) ==
LOC: ER 11:17
DX: R60.9 Edema, unspecified (principal); I87.8 Other specified disorders of veins; I10 Essential (primary) hypertension; Z98.890 Other specified postprocedural states; Z86.73 Personal history of transient ischemic attack (TIA), and cerebral infarction without residual deficits
CPT/HCPCS: 36415; 71045; 80053; 81003; 83880; 84484; 85025; 93005; 99285

== ENCOUNTER 2020-11-08 19:22 | Emergency (ER) | payer MEDICARE, MEDICAID ==
[~2020-11-08] VITALS: Ht 165.1 cm; Wt 75.8 kg
[2020-11-08] MEDS ORDERED: SODIUM CHLORIDE 0.9% 1,000 ML IV ONE (20:45)
[2020-11-08 20:53] LABS: CHLORIDE 109 mEq/L (98-107)
[2020-11-08 21:29] LABS: HEMOGLOBIN. 15.1 g/dL (14.0-18.0); MEAN CORPUSCULAR HEMOGLOBIN 30.8 pg (28.0-32.0); MEAN PLATELET VOLUME 8.9 fl (7.4-10.4); PLATELET 175 x1000/uL (130-400); RED BLOOD CELL COUNT 4.88 mill/uL (4.7-6.1)
[2020-11-08 21:39] LABS: INR 1.1; PARTIAL THROMBOPLASTIN TIME 29.1 sec (23.4-31.0); PROTHROMBIN TIME 11.3 sec (9.6-11.0)
[2020-11-08 21:47] LABS: PLATELET ESTIMATE NORMAL
[2020-11-09 11:09] VITALS: BP 142/78
== END 2020-11-09 11:47 | disposition home or self-care (01) ==
LOC: ER 19:22
DX: K62.5 Hemorrhage of anus and rectum (principal); I10 Essential (primary) hypertension; F99 Mental disorder, not otherwise specified; Z86.73 Personal history of transient ischemic attack (TIA), and cerebral infarction without residual deficits; Z86.711 Personal history of pulmonary embolism; Z79.01 Long term (current) use of anticoagulants
CPT/HCPCS: 36415; 71045; 80053; 83690; 85025; 85610; 85730; 86850; 86900; 86901; 93005; 96360; 96361; 99285; J7030

== ENCOUNTER 2021-06-22 23:12 | Emergency (ER) | payer MEDICARE, MEDICAID ==
[~2021-06-22] VITALS: Ht 157.5 cm; Wt 75.0 kg
[2021-06-23] MEDS ORDERED: IBUPROFEN 600MG TABLET PO ONE (00:45)
[2021-06-23 01:25] VITALS: BP 149/77
[2021-07-03] MEDS ORDERED: ALBU18HF2 IH (12:27)
== END 2021-06-23 01:40 | disposition home or self-care (01) ==
LOC: ER 23:12
DX: B34.9 Viral infection, unspecified (principal); I10 Essential (primary) hypertension; Z98.890 Other specified postprocedural states; Z86.73 Personal history of transient ischemic attack (TIA), and cerebral infarction without residual deficits
CPT/HCPCS: 99283

== ENCOUNTER 2021-06-27 09:47 | Emergency (ER) | payer MEDICARE, MEDICAID ==
[~2021-06-27] VITALS: Ht 165.1 cm; Wt 67.0 kg
[2021-06-27 11:54] LABS: BASOPHILS % 0.9 % (0.0-2.0); EOSINOPHILS % 1.7 % (0.0-5.0); HEMOGLOBIN. 15.7 g/dL (14.0-18.0); LYMPHOCYTES % 11.5 % (20.0-50.0); MEAN CORPUSCULAR HEMOGLOBIN 29.9 pg (28.0-32.0); MEAN CORPUSCULAR VOLUME 85.6 fL (80.0-94.0); MEAN PLATELET VOLUME 9.1 fl (7.4-10.4); MONOCYTES % 6.4 % (2.0-8.0); NEUTROPHILS % 79.5 % (40.0-76.0); PLATELET 203 x1000/uL (130-400); RED BLOOD CELL COUNT 5.26 mill/uL (4.7-6.1); RED CELL DISTRIBUTION WIDTH 14.4 % (11.6-14.6)
[2021-06-27 11:59] LABS: CHLORIDE 112 mEq/L (98-107)
[2021-06-27] MEDS ORDERED: METHYLPREDNISOLONE SOD SUCC 125 MG/2 ML VIAL IV STA (15:34)
[2021-06-27] MEDS ORDERED: ALBUTEROL 6.7GM HFA INHALER ORI PRN (15:45)
[2021-06-27] MEDS ORDERED: P50 PO (16:10)
[2021-06-27] MEDS ORDERED: ALBU18HF2 IH (16:12)
[2021-06-27 16:39] VITALS: BP 121/83
== END 2021-06-27 16:47 | disposition home or self-care (01) ==
LOC: ER 09:47
DX: U07.1 COVID-19 (principal); B34.9 Viral infection, unspecified; R06.02 Shortness of breath; Z86.73 Personal history of transient ischemic attack (TIA), and cerebral infarction without residual deficits
CPT/HCPCS: 36415; 71045; 80053; 83880; 84484; 85025; 87426; 87804; 93005; 94640; 96374; 99285; J2930

== ENCOUNTER 2021-08-25 11:01 | Emergency (ER) | payer MEDICARE, MEDICAID ==
[~2021-08-25] VITALS: Ht 165.1 cm; Wt 67.0 kg
[~2021-08-25 11:01] MED LIST changes: +ALBU18HF2 IH; +P50 PO
[2021-08-25 11:05] VITALS: BP 157/82
[2021-08-25] MEDS ORDERED: ASPIRIN 81MG TABLET PO ONE (12:30)
[2021-08-25] MEDS ORDERED: NITROGLYCERIN OINT 1GM/INCH UDPKT TD ONE (12:30)
[2021-08-25 14:05] LABS: BASOPHILS % 0.8 % (0.0-2.0); EOSINOPHILS % 1.8 % (0.0-5.0); HEMATOCRIT. 43.9 % (42.0-52.0); HEMOGLOBIN. 14.9 g/dL (14.0-18.0); LYMPHOCYTES % 12.2 % (20.0-50.0); MEAN CORPUSCULAR HEMOGLOBIN 29.2 pg (28.0-32.0); MEAN CORPUSCULAR VOLUME 86.2 fL (80.0-94.0); MEAN PLATELET VOLUME 8.8 fl (7.4-10.4); MONOCYTES % 6.9 % (2.0-8.0); NEUTROPHILS % 78.3 % (40.0-76.0); PLATELET 183 x1000/uL (130-400); RED CELL DISTRIBUTION WIDTH 14.7 % (11.6-14.6)
[2021-08-25 14:15] LABS: CHLORIDE 109 mEq/L (98-107)
[2021-08-25 14:23] LABS: ETHANOL BLOOD < 10 mg/dL
[2021-08-25 14:33] LABS: CANNABINOID URINE SCREEN NEGATIVE (NEGATIVE); OPIATES URINE SCREEN NEGATIVE (NEGATIVE); PHENCYCLIDINE URINE SCREEN NEGATIVE (NEGATIVE)
[2021-08-25 14:34] LABS: *AMPHETAMINES SCREEN URINE NEGATIVE (NEGATIVE); *BARBITURATES SCREEN URINE NEGATIVE (NEGATIVE); *BENZODIAZEPINES SCREEN URINE NEGATIVE (NEGATIVE); *COCAINE SCREEN URINE NEGATIVE (NEGATIVE); METHADONE URINE SCREEN NEGATIVE (NEGATIVE)
== END 2021-08-25 17:19 | disposition home or self-care (01) ==
LOC: ER 11:01
DX: R07.89 Other chest pain (principal); I10 Essential (primary) hypertension; Z86.73 Personal history of transient ischemic attack (TIA), and cerebral infarction without residual deficits
CPT/HCPCS: 36415; 71045; 80053; 80305; 80320; 83880; 84484; 85025; 85379; 93005; 99285; G0480

== ENCOUNTER 2021-12-20 13:13 | Emergency (ER) | payer MEDICARE, MEDICAID ==
[~2021-12-20] VITALS: Ht 165.1 cm; Wt 69.0 kg
[2021-12-20 15:18] LABS: BASOPHILS % 0.6 % (0.0-2.0); CHLORIDE 108 mEq/L (98-107); EOSINOPHILS % 1.5 % (0.0-5.0); HEMATOCRIT. 47.2 % (42.0-52.0); HEMOGLOBIN. 15.8 g/dL (14.0-18.0); LYMPHOCYTES % 10.3 % (20.0-50.0); MEAN CORPUSCULAR HEMOGLOBIN 28.6 pg (28.0-32.0); MEAN CORPUSCULAR VOLUME 85.7 fL (80.0-94.0); MONOCYTES % 9.1 % (2.0-8.0); NEUTROPHILS % 78.5 % (40.0-76.0); PLATELET 182 x1000/uL (130-400); RED BLOOD CELL COUNT 5.51 mill/uL (4.7-6.1); RED CELL DISTRIBUTION WIDTH 15.3 % (11.6-14.6)
[2021-12-20] MEDS ORDERED: ACETAMINOPHEN 500MG TABLET PO NR (16:15)
[2021-12-20 17:30] VITALS: BP 138/73
== END 2021-12-20 18:12 | disposition home or self-care (01) ==
LOC: ER 13:13
DX: U07.1 COVID-19 (principal); I44.4 Left anterior fascicular block; I10 Essential (primary) hypertension; E11.9 Type 2 diabetes mellitus without complications; I69.354 Hemiplegia and hemiparesis following cerebral infarction affecting left non-dominant side; R26.89 Other abnormalities of gait and mobility; J45.909 Unspecified asthma, uncomplicated
CPT/HCPCS: 36415; 71045; 80053; 83880; 84484; 85025; 87426; 93005; 99285; C9803

== ENCOUNTER 2021-12-22 20:29 | Emergency (ER) | payer MEDICAID, MEDICARE ==
[~2021-12-22] VITALS: Ht 170.2 cm; Wt 80.0 kg
[2021-12-22 21:00] VITALS: BP 163/80
[2021-12-23] MEDS ORDERED: IBUPROFEN 600MG TABLET PO ONE (01:45)
== END 2021-12-23 02:13 | disposition home or self-care (01) ==
LOC: ER 20:29
DX: U07.1 COVID-19 (principal); M79.10 Myalgia, unspecified site
CPT/HCPCS: 99283

== ENCOUNTER 2022-02-01 06:42 | Emergency (ER) | payer MEDICARE, MEDICAID ==
[~2022-02-01] VITALS: Ht 167.6 cm; Wt 82.0 kg
[2022-02-01 07:14] VITALS: BP 130/85
[2022-02-01] MEDS ORDERED: ACETAMINOPHEN 325MG TABLET PO ONE (07:30)
[2022-02-01] MEDS ORDERED: ACET-2708 MT (09:52)
== END 2022-02-01 11:19 | disposition home or self-care (01) ==
LOC: ER 06:42
DX: S09.8XXA Other specified injuries of head, initial encounter (principal); S50.02XA Contusion of left elbow, initial encounter; S50.01XA Contusion of right elbow, initial encounter; I10 Essential (primary) hypertension; F43.10 Post-traumatic stress disorder, unspecified; I69.354 Hemiplegia and hemiparesis following cerebral infarction affecting left non-dominant side; Y04.0XXA Assault by unarmed brawl or fight, initial encounter; Y93.89 Activity, other specified; Y92.018 Other place in single-family (private) house as the place of occurrence of the external cause
CPT/HCPCS: 71045; 73080; 99284

== ENCOUNTER 2022-02-08 16:30 | Emergency (ER) | payer MEDICARE, MEDICAID ==
[~2022-02-08] VITALS: Ht 172.7 cm; Wt 68.0 kg
[~2022-02-08 16:30] MED LIST changes: +ACET-2708 MT
[2022-02-08] MEDS ORDERED: ACETAMINOPHEN 325MG TABLET PO STA (17:06)
[2022-02-08 17:41] LABS: BASOPHILS % 0.6 % (0.0-2.0); HEMATOCRIT. 47.2 % (42.0-52.0); HEMOGLOBIN. 15.9 g/dL (14.0-18.0); LYMPHOCYTES % 16.6 % (20.0-50.0); MEAN CORPUSCULAR HEMOGLOBIN 29.3 pg (28.0-32.0); MEAN CORPUSCULAR VOLUME 86.9 fL (80.0-94.0); MEAN PLATELET VOLUME 9.1 fl (7.4-10.4); MONOCYTES % 7.8 % (2.0-8.0); PLATELET 204 x1000/uL (130-400); RED BLOOD CELL COUNT 5.43 mill/uL (4.7-6.1); RED CELL DISTRIBUTION WIDTH 15.1 % (11.6-14.6)
[2022-02-08 17:50] LABS: CHLORIDE 109 mEq/L (98-107)
[2022-02-08 17:53] LABS: PROTHROMBIN TIME 10.9 sec (9.6-11.0)
[2022-02-08] MEDS ORDERED: POTASSIUM CHLORIDE 20MEQ TABLET SR PO ONE (19:15)
[2022-02-08] MEDS ORDERED: CEPHALEXIN 250MG CAPSULE PO ONE (20:15)
[2022-02-08] MEDS ORDERED: SULFAMETHOXAZOLE/TRIMETHOPRIM 400/80MG TAB PO ONE (20:15)
[2022-02-08] MEDS ORDERED: MUPI15CR11 TP (21:37)
[2022-02-08] MEDS ORDERED: CEPH500C2 MT (21:37)
[2022-02-08] MEDS ORDERED: SULF1TAB48 MT (21:37)
[2022-02-08] MEDS: MUPIROCIN 2% OINT 15GM TOP SCH ×3 (22:00→22:11)
[2022-02-08 22:17] VITALS: BP 125/75
== END 2022-02-08 22:19 | disposition home or self-care (01) ==
LOC: ER 16:30
DX: S81.802A Unspecified open wound, left lower leg, initial encounter (principal); I10 Essential (primary) hypertension; Z86.73 Personal history of transient ischemic attack (TIA), and cerebral infarction without residual deficits; Z79.01 Long term (current) use of anticoagulants; Z87.891 Personal history of nicotine dependence; Y08.89XA Assault by other specified means, initial encounter; Y93.89 Activity, other specified; Y92.89 Other specified places as the place of occurrence of the external cause; Y99.8 Other external cause status
CPT/HCPCS: 36415; 73590; 80053; 85025; 93971; 99285

== ENCOUNTER 2022-04-09 14:49 | Emergency (ER) | payer MEDICARE, MEDICAID ==
[~2022-04-09] VITALS: Ht 162.6 cm; Wt 75.0 kg
[~2022-04-09 14:49] MED LIST changes: +AMOX1TAB16 MT; +LEVO-65 MT; +MUPI15CR11 TP; -P50 PO; -SULF1TAB48 MT
[2022-04-09] MEDS: HYDROCODONE/ACETAMINOPHEN 5/325MG TABLET PO STA ×2 (18:39→21:36)
[2022-04-09] MEDS ORDERED: LEVETIRACETAM 500MG PREMIX 100 ML IV ONE (20:15)
[2022-04-09] MEDS ORDERED: MORPHINE SULFATE 4 MG/ML CPJ (NOT FOR IM USE) IV NR (20:30)
[2022-04-09 21:16] LABS: HEMOGLOBIN 14.2 g/dL (14.0-18.0); MEAN CORPUSCULAR HEMOGLOBIN 29.2 pg (28.0-32.0); MEAN CORPUSCULAR VOLUME 86.3 fL (80.0-94.0); PLATELET 249 x1000/uL (130-400); RED BLOOD CELL COUNT 4.87 mill/uL (4.7-6.1); RED CELL DISTRIBUTION WIDTH 15.2 % (11.6-14.6)
[2022-04-09 21:23] LABS: CHLORIDE 108 mEq/L (98-107)
[2022-04-09 21:26] VITALS: BP 138/70
[2022-04-09 21:28] LABS: INR 1.1; PARTIAL THROMBOPLASTIN TIME 28.5 sec (23.4-31.0); PROTHROMBIN TIME 11.6 sec (9.6-11.0)
== END 2022-04-09 21:27 | disposition short-term general hospital (02) ==
LOC: ER 14:49
DX: S06.5X0A Traumatic subdural hemorrhage without loss of consciousness, initial encounter (principal); S00.81XA Abrasion of other part of head, initial encounter; M54.59 Other low back pain; M25.561 Pain in right knee; R26.89 Other abnormalities of gait and mobility; W01.198A Fall on same level from slipping, tripping and stumbling with subsequent striking against other object, initial encounter; Y93.01 Activity, walking, marching and hiking; Y92.018 Other place in single-family (private) house as the place of occurrence of the external cause
CPT/HCPCS: 36415; 70450; 71045; 72070; 72100; 72125; 72170; 73562; 80053; 85027; 85610; 85730; 96365; 96375; 99291; J1953; J2270

== ENCOUNTER 2022-11-16 19:06 | Emergency (ER) | payer MEDICARE, MEDICAID ==
[~2022-11-16] VITALS: Ht 167.6 cm; Wt 64.0 kg
[2022-11-16 19:15] VITALS: BP 164/84
== END 2022-11-16 21:36 | disposition left against medical advice (07) ==
LOC: ER 19:06
DX: R51.9 Headache, unspecified (principal); I10 Essential (primary) hypertension; Z53.21 Procedure and treatment not carried out due to patient leaving prior to being seen by health care provider; Z86.73 Personal history of transient ischemic attack (TIA), and cerebral infarction without residual deficits
CPT/HCPCS: 99283

== ENCOUNTER 2024-01-31 11:32 | Inpatient (IN) | payer BC, MEDICAID ==
[~2024-01-31] VITALS: Ht 165.1 cm; Wt 69.4 kg
[2024-01-31 14:07] LABS: BASOPHILS % 0.4 % (0.0-2.0); EOSINOPHILS % 1.2 % (0.0-5.0); HEMATOCRIT. 48.6 % (42.0-52.0); HEMOGLOBIN. 16.6 g/dL (14.0-18.0); LYMPHOCYTES % 10.4 % (20.0-50.0); MEAN CORPUSCULAR HEMOGLOBIN 30.5 pg (28.0-32.0); MEAN CORPUSCULAR HGB CONC 34.1 g/dL (31.0-37.0); MEAN CORPUSCULAR VOLUME 89.2 fL (80.0-94.0); MEAN PLATELET VOLUME 9.2 fl (7.4-10.4); MONOCYTES % 7.6 % (2.0-8.0); NEUTROPHILS % 80.4 % (40.0-76.0); PLATELET 183 x1000/uL (130-400); RED BLOOD CELL COUNT 5.44 mill/uL (4.7-6.1); RED CELL DISTRIBUTION WIDTH 13.9 % (11.6-14.6); WHITE BLOOD COUNT 10.9 x1000/uL (4.5-11.0)
[2024-01-31 14:08] LABS: CHLORIDE 110 mEq/L (98-107); POTASSIUM 3.9 mEq/L (3.5-5.1); SODIUM 142 mEq/L (136-145)
[2024-01-31 14:09] LABS: CALCIUM 9.4 mg/dL (8.7-10.4); CARBON DIOXIDE 27 mEq/L (21-32)
[2024-01-31 14:14] LABS: CREATININE 0.6 mg/dL (0.6-1.3); GLUCOSE 104 mg/dL (70-105); UREA NITROGEN BLOOD 14 mg/dL (9-23)
[2024-01-31 14:16] LABS: ALANINE AMINOTRANSFERASE 23 IU/L (10-49); ALBUMIN 4.3 g/dL (3.2-4.8); ASPARTATE AMINOTRANSFERASE 20 IU/L (<34); BILIRUBIN TOTAL 0.4 mg/dL (0.1-1.0); PROTEIN TOTAL 6.9 g/dL (6.0-8.3)
[2024-02-01 00:28] LABS: CLARITY URINE TURBID (CLEAR); COLOR URINE YELLOW (YELLOW); GLUCOSE URINE NEGATIVE (NEGATIVE); KETONES URINE NEGATIVE (NEGATIVE); LEUKOCYTE ESTERASE URINE 3+ (NEGATIVE); NITRITE URINE POSITIVE (NEGATIVE); OCCULT BLOOD URINE TRACE (NEGATIVE); PH URINE 5.5 (4.5-8.0); PROTEIN URINE TRACE (NEGATIVE); SPECIFIC GRAVITY URINE 1.017 (1.005-1.030); UROBILINOGEN URINE 0.2 E.U./dL (0.2-1.0)
[2024-02-01 00:40] LABS: BACTERIA URINE 3+; SQUAMOUS EPITHELIAL CELL URINE 1+ /lpf (RARE/1+); WBC URINE TNTC /hpf (0-2)
[2024-02-01] MEDS: LABETALOL 5MG/ML 4ML INJ IV NR (01:37)
[2024-02-01 03:01] VITALS: BP 129/81; PULSE 52; RESP 18; TEMP 36.5848
[2024-02-01] MEDS ORDERED: CLONIDINE 0.1MG TABLET PO PRN (03:15)
[2024-02-01] MEDS ORDERED: ACETAMINOPHEN 325MG TABLET PO PRN ×2 (03:15)
[2024-02-01] MEDS ORDERED: IPRATROPIUM/ALBUTEROL 0.5-3(2.5)MG/3ML NEB HHN PRN (03:15)
[2024-02-01] MEDS ORDERED: LORAZEPAM 0.5MG TABLET PO PRN (03:15)
[2024-02-01] MEDS ORDERED: ONDANSETRON HCL 4MG/2ML INJ IV PRN (03:15)
[2024-02-01] MEDS ORDERED: MAGNESIUM/ALUMINUM HYDROXIDE/SIMETHICONE 30ML UDC PO PRN (03:15)
[2024-02-01] MEDS ORDERED: DOCUSATE SODIUM 100MG CAPSULE PO PRN (03:15)
[2024-02-01] MEDS ORDERED: GUAIFENESIN 200MG/10ML SUGAR FREE UDC PO PRN (03:15)
[2024-02-01 04:59] LABS: *AMPHETAMINES SCREEN URINE NEGATIVE (NEGATIVE); *BARBITURATES SCREEN URINE NEGATIVE (NEGATIVE); *BENZODIAZEPINES SCREEN URINE NEGATIVE (NEGATIVE); *COCAINE SCREEN URINE NEGATIVE (NEGATIVE); CANNABINOID URINE SCREEN NEGATIVE (NEGATIVE); ECSTASY MDMA SCREEN URINE NEGATIVE (NEGATIVE); METHADONE URINE SCREEN NEGATIVE (NEGATIVE); OPIATES URINE SCREEN NEGATIVE (NEGATIVE); PHENCYCLIDINE URINE SCREEN NEGATIVE (NEGATIVE)
[2024-02-01] MEDS: CEFTRIAXONE 1GM/50ML 50 ML IV SCH (07:07)
[2024-02-01 08:00] VITALS: BP 151/75; PULSE 62; RESP 20; TEMP 36.16956; O2SAT 99
[2024-02-01] MEDS ORDERED: ASPIRIN 81MG EC TABLET PO SCH (09:00)
[2024-02-01 10:51] LABS: BASOPHILS % 0.7 % (0.0-2.0); CALCIUM 8.9 mg/dL (8.7-10.4); CARBON DIOXIDE 24 mEq/L (21-32); CHLORIDE 110 mEq/L (98-107); EOSINOPHILS % 2.1 % (0.0-5.0); HEMATOCRIT. 44.8 % (42.0-52.0); HEMOGLOBIN. 15.1 g/dL (14.0-18.0); LYMPHOCYTES % 11.6 % (20.0-50.0); MEAN CORPUSCULAR HEMOGLOBIN 30.4 pg (28.0-32.0); MEAN CORPUSCULAR HGB CONC 33.8 g/dL (31.0-37.0); MEAN PLATELET VOLUME 9.3 fl (7.4-10.4); MONOCYTES % 7.7 % (2.0-8.0); NEUTROPHILS % 77.9 % (40.0-76.0); PLATELET 159 x1000/uL (130-400); POTASSIUM 3.6 mEq/L (3.5-5.1); RED BLOOD CELL COUNT 4.98 mill/uL (4.7-6.1); RED CELL DISTRIBUTION WIDTH 13.8 % (11.6-14.6); SODIUM 141 mEq/L (136-145); WHITE BLOOD COUNT 8.1 x1000/uL (4.5-11.0)
[2024-02-01 10:56] LABS: CREATININE 0.7 mg/dL (0.6-1.3); GLUCOSE 196 mg/dL (70-105)
[2024-02-01 10:57] LABS: TRIGLYCERIDE 151 mg/dL (0-150); UREA NITROGEN BLOOD 12 mg/dL (9-23)
[2024-02-01 10:58] LABS: ALBUMIN 3.8 g/dL (3.2-4.8); CHOLESTEROL 110 mg/dL (<200); CREATINE KINASE 75 IU/L (46-171); LDL CHOLESTEROL 67 mg/dL (5-100)
[2024-02-01 10:59] LABS: HDL CHOLESTEROL 29 mg/dL (>55)
[2024-02-01 11:31] LABS: THYROID STIMULATING HORMONE 4.12 uIU/mL (0.55-4.78)
[2024-02-01 12:00] VITALS: BP 145/77; PULSE 60; RESP 20; TEMP 36.22512; O2SAT 99
[2024-02-01 16:00] VITALS: BP 139/67; PULSE 61; RESP 18; TEMP 36.114; O2SAT 99
[2024-02-01 20:40] VITALS: BP 158/84; PULSE 55; RESP 20; TEMP 35.89176; O2SAT 96
[2024-02-02] VITALS: BP 141/73; PULSE 59; RESP 19; TEMP 36.6696; O2SAT 99
[2024-02-02 04:00] VITALS: BP 152/77; PULSE 55; RESP 18; TEMP 36.72516; O2SAT 99
[2024-02-02 07:39] LABS: BASOPHILS % 0.6 % (0.0-2.0); EOSINOPHILS % 2.2 % (0.0-5.0); HEMATOCRIT. 48.7 % (42.0-52.0); HEMOGLOBIN. 16.4 g/dL (14.0-18.0); LYMPHOCYTES % 14.9 % (20.0-50.0); MEAN CORPUSCULAR HEMOGLOBIN 30.2 pg (28.0-32.0); MEAN CORPUSCULAR HGB CONC 33.7 g/dL (31.0-37.0); MEAN CORPUSCULAR VOLUME 89.6 fL (80.0-94.0); MEAN PLATELET VOLUME 9.1 fl (7.4-10.4); MONOCYTES % 8.6 % (2.0-8.0); NEUTROPHILS % 73.7 % (40.0-76.0); PLATELET 162 x1000/uL (130-400); RED BLOOD CELL COUNT 5.44 mill/uL (4.7-6.1); RED CELL DISTRIBUTION WIDTH 13.9 % (11.6-14.6); WHITE BLOOD COUNT 7.7 x1000/uL (4.5-11.0)
[2024-02-02 07:43] LABS: CARBON DIOXIDE 27 mEq/L (21-32); CHLORIDE 109 mEq/L (98-107); POTASSIUM 3.9 mEq/L (3.5-5.1); SODIUM 142 mEq/L (136-145)
[2024-02-02 07:44] LABS: CALCIUM 9.3 mg/dL (8.7-10.4)
[2024-02-02 07:48] LABS: CREATININE 0.6 mg/dL (0.6-1.3); GLUCOSE 112 mg/dL (70-105)
[2024-02-02 07:49] LABS: CREATINE KINASE 101 IU/L (46-171); UREA NITROGEN BLOOD 10 mg/dL (9-23)
[2024-02-02 08:00] VITALS: BP 151/86; PULSE 63; RESP 18; TEMP 36.50292; O2SAT 97
[2024-02-02 10:02] VITALS: BP 141/85; PULSE 63; TEMP 97.7; O2SAT 97
[2024-02-02 12:00] VITALS: BP 147/81; PULSE 56; RESP 19; TEMP 36.55848; O2SAT 98
[2024-02-02] MEDS: AMLODIPINE 5MG TABLET PO SCH (12:18)
== END 2024-02-02 15:39 | disposition home or self-care (01) | DRG 300 ==
LOC: ER 11:32 → 7WST 23:33 → EDBEDREQTM 23:45 → EDBEDREQ 23:45
PROVIDERS: ADMIT Internal Medicine; ATTEND Internal Medicine
DX: I73.9 Peripheral vascular disease, unspecified (principal); N39.0 Urinary tract infection, site not specified; B37.9 Candidiasis, unspecified; G93.89 Other specified disorders of brain; I10 Essential (primary) hypertension; L85.9 Epidermal thickening, unspecified; I25.2 Old myocardial infarction; Z79.899 Other long term (current) drug therapy; Z79.01 Long term (current) use of anticoagulants; Z86.73 Personal history of transient ischemic attack (TIA), and cerebral infarction without residual deficits; Z99.3 Dependence on wheelchair
CPT/HCPCS: 36415; 71045; 80048; 80053; 80061; 80305; 81003; 82040; 82550; 84443; 85025; 87077; 87186; 93970; 94640; 99285; J0696; J3490